=== PATIENT | male | born 1950 | race Caucasian/White ===

== ENCOUNTER → 2016-11-15 | Outpatient (CLI) | payer MEDICARE, OTHER ==
[2016-11-15 13:24] LABS: HEMATOCRIT 44.9 % (37.9-51.0); HEMOGLOBIN 15.2 g/dL (13.5-17.0); HGB HCT DIFFERENCE 0.7; MEAN CORPUSCULAR HEMOGLOBIN 28.9 pg (27.0-33.4); MEAN CORPUSCULAR HGB CONC 33.8 g/dL (32.0-36.0); MEAN CORPUSCULAR VOLUME 86 fl (80-97); RED BLOOD COUNT 5.25 10^6/uL (4.35-5.55); RED CELL DISTRIBUTION WIDTH 14.6 % (11.5-14.0); WHITE BLOOD COUNT 7.5 10^3/uL (4.0-10.5)
[2016-11-15 13:49] LABS: ANION GAP 12 (5-19); BLOOD UREA NITROGEN 41 mg/dL (7-20); CALCIUM 9.8 mg/dL (8.4-10.2); CARBON DIOXIDE 39 mmol/L (22-30); CHLORIDE 88 mmol/L (98-107); CREATININE RESULT 1.46 mg/dL (0.52-1.25); GLUCOSE 238 mg/dL (75-110); MAGNESIUM 1.7 mg/dL (1.6-2.3); POTASSIUM 3.1 mmol/L (3.6-5.0); SODIUM 139.4 mmol/L (137-145)
== END ==
LOC: OD 12:11
PROVIDERS: ATTEND Internal Medicine Nephrology
DX: I12.9 Hypertensive chronic kidney disease with stage 1 through stage 4 chronic kidney disease, or unspecified chronic kidney disease (principal); N18.3 Chronic kidney disease, stage 3 (moderate); I50.9 Heart failure, unspecified; E11.9 Type 2 diabetes mellitus without complications
CPT/HCPCS: 36415; 80048; 83735; 85027

== ENCOUNTER → 2016-11-17 | Outpatient (CLI) | payer MEDICARE, OTHER | LOC: OD 14:55 | PROVIDERS: ATTEND Internal Medicine Nephrology | DX: E87.6 Hypokalemia (principal) | CPT/HCPCS: 36415; 84132 ==

== ENCOUNTER → 2016-12-16 | Outpatient (CLI) | payer MEDICARE, OTHER ==
[2016-12-16 16:41] LABS: ABSOLUTE EOSINOPHILS # (AUTO) 0.2 10^3/uL (0.0-0.6); ABSOLUTE LYMPHOCYTES (AUTO) 2.3 10^3/uL (0.5-4.7); ABSOLUTE MONOCYTES (AUTO) 0.7 10^3/uL (0.1-1.4); ABSOLUTE NEUT (AUTO) 2.9 10^3/uL (1.7-8.2); BASOPHILS % (AUTO) 0.5 % (0-2); EOSINOPHILS % (AUTO) 2.6 % (0-6); HEMATOCRIT 42.5 % (37.9-51.0); HEMOGLOBIN 13.9 g/dL (13.5-17.0); HGB HCT DIFFERENCE -0.8; LYMPHOCYTES % (AUTO) 38.1 % (13-45); MEAN CORPUSCULAR HEMOGLOBIN 28.6 pg (27.0-33.4); MEAN CORPUSCULAR HGB CONC 32.8 g/dL (32.0-36.0); MEAN CORPUSCULAR VOLUME 87 fl (80-97); MONOCYTES % (AUTO) 11.9 % (3-13); RED BLOOD COUNT 4.88 10^6/uL (4.35-5.55); RED CELL DISTRIBUTION WIDTH 15.6 % (11.5-14.0); SEGMENTED NEUTROPHILS % (AUTO) 46.9 % (42-78); WHITE BLOOD COUNT 6.1 10^3/uL (4.0-10.5)
[2016-12-16 17:05] LABS: ALANINE AMINOTRANSFERASE 34 U/L (21-72); ALBUMIN 4.1 g/dL (3.5-5.0); ALKALINE PHOSPHATASE 131 U/L (38-126); ANION GAP 11 (5-19); ASPARTATE AMINO TRANSFERASE 26 U/L (17-59); BILIRUBIN,TOTAL 0.5 mg/dL (0.2-1.3); BLOOD UREA NITROGEN 30 mg/dL (7-20); CALCIUM 9.4 mg/dL (8.4-10.2); CARBON DIOXIDE 35 mmol/L (22-30); CHLORIDE 98 mmol/L (98-107); CREATININE RESULT 1.56 mg/dL (0.52-1.25); GLUCOSE 146 mg/dL (75-110); MAGNESIUM 2.2 mg/dL (1.6-2.3); PHOSPHORUS 4.6 mg/dL (2.5-4.5); POTASSIUM 4.5 mmol/L (3.6-5.0); SODIUM 143.7 mmol/L (137-145); TOTAL PROTEIN 6.8 g/dL (6.3-8.2)
== END ==
LOC: OD 15:01
PROVIDERS: ATTEND Internal Medicine Nephrology
DX: N18.3 Chronic kidney disease, stage 3 (moderate) (principal); E87.6 Hypokalemia; E11.9 Type 2 diabetes mellitus without complications; I50.9 Heart failure, unspecified
CPT/HCPCS: 36415; 80053; 83735; 84100; 85025

== ENCOUNTER → 2017-01-18 | Outpatient (CLI) | payer MEDICARE, OTHER ==
[2017-01-18 12:09] LABS: HEMATOCRIT 46.3 % (37.9-51.0); HEMOGLOBIN 15.1 g/dL (13.5-17.0); MEAN CORPUSCULAR HEMOGLOBIN 27.4 pg (27.0-33.4); MEAN CORPUSCULAR HGB CONC 32.6 g/dL (32.0-36.0); MEAN CORPUSCULAR VOLUME 84 fl (80-97); RED BLOOD COUNT 5.51 10^6/uL (4.35-5.55); RED CELL DISTRIBUTION WIDTH 15.2 % (11.5-14.0); WHITE BLOOD COUNT 9.2 10^3/uL (4.0-10.5)
[2017-01-18 12:11] LABS: APPEARANCE,URINE CLEAR; BILIRUBIN,URINE NEGATIVE (NEGATIVE); GLUCOSE, URINE >=500 mg/dL (NEGATIVE); KETONES,URINE NEGATIVE (NEGATIVE); LEUKOCYTE ESTERASE,URINE NEGATIVE (NEGATIVE); NITRITE,URINE NEGATIVE (NEGATIVE); PROTEIN,URINE NEGATIVE (NEGATIVE); URINE SPECIFIC GRAVITY 1.013; UROBILINOGEN,URINE NEGATIVE mg/dL (<2.0)
[2017-01-18 12:32] LABS: ALANINE AMINOTRANSFERASE 32 U/L (21-72); ALBUMIN 4.3 g/dL (3.5-5.0); ALKALINE PHOSPHATASE 97 U/L (38-126); ANION GAP 12 (5-19); ASPARTATE AMINO TRANSFERASE 26 U/L (17-59); BILIRUBIN,TOTAL 0.9 mg/dL (0.2-1.3); BLOOD UREA NITROGEN 48 mg/dL (7-20); CALCIUM 10.5 mg/dL (8.4-10.2); CREATININE RESULT 1.66 mg/dL (0.52-1.25); GLUCOSE 323 mg/dL (75-110); POTASSIUM 3.7 mmol/L (3.6-5.0); TOTAL PROTEIN 7.5 g/dL (6.3-8.2)
[2017-01-18 12:43] LABS: CHLORIDE 88 mmol/L (98-107); SODIUM 139.9 mmol/L (137-145)
[2017-01-18 13:41] LABS: CARBON DIOXIDE 40 mmol/L (22-30)
== END ==
LOC: OD 10:20
PROVIDERS: ATTEND Internal Medicine Nephrology
DX: I12.9 Hypertensive chronic kidney disease with stage 1 through stage 4 chronic kidney disease, or unspecified chronic kidney disease (principal); N18.3 Chronic kidney disease, stage 3 (moderate); I50.9 Heart failure, unspecified; E11.9 Type 2 diabetes mellitus without complications
CPT/HCPCS: 36415; 80053; 81001; 83735; 85027

== ENCOUNTER → 2017-01-23 | Outpatient (CLI) | payer MEDICARE, OTHER ==
[2017-01-23 13:24] LABS: ANION GAP 17 (5-19); BLOOD UREA NITROGEN 40 mg/dL (7-20); CALCIUM 9.6 mg/dL (8.4-10.2); CARBON DIOXIDE 35 mmol/L (22-30); CHLORIDE 92 mmol/L (98-107); GLUCOSE 192 mg/dL (75-110); POTASSIUM 3.3 mmol/L (3.6-5.0); SODIUM 144.2 mmol/L (137-145)
== END ==
LOC: OD 12:20
PROVIDERS: ATTEND Internal Medicine Nephrology
DX: E87.2 Acidosis (principal)
CPT/HCPCS: 36415; 80048

== ENCOUNTER → 2017-03-06 | Outpatient (CLI) | payer MEDICARE, OTHER ==
[2017-03-06 14:02] LABS: ANION GAP 12 (5-19); BLOOD UREA NITROGEN 36 mg/dL (7-20); CALCIUM 10.1 mg/dL (8.4-10.2); CARBON DIOXIDE 37 mmol/L (22-30); CHLORIDE 93 mmol/L (98-107); CREATININE RESULT 1.65 mg/dL (0.52-1.25); GLUCOSE 273 mg/dL (75-110); MAGNESIUM 1.9 mg/dL (1.6-2.3); POTASSIUM 4.4 mmol/L (3.6-5.0); SODIUM 141.5 mmol/L (137-145)
== END ==
LOC: OD 12:34
PROVIDERS: ATTEND Internal Medicine Nephrology
DX: N18.3 Chronic kidney disease, stage 3 (moderate) (principal); I50.9 Heart failure, unspecified; E87.5 Hyperkalemia; E11.9 Type 2 diabetes mellitus without complications
CPT/HCPCS: 36415; 80048; 83735

== ENCOUNTER 2017-03-31 15:31 | Emergency (ER) | payer MEDICARE, OTHER ==
--- NOTE | 2017-03-31 15:45 | ER Document Report ---
ED Medical Screen (RME) - General Chief Complaint: Shortness Of Breath Stated Complaint: POSSIBLE BLOOD CLOT Time Seen by Provider: 03/31/17 15:34 Mode of Arrival: Ambulatory Information source: Patient TRAVEL OUTSIDE OF THE [place] IN LAST 30 DAYS: No - HPI Patient complains to provider of: Pain, shortness of breath, dyspnea on exertion Onset: Yesterday Onset/Duration: Persistent Quality of pain: Achy Severity: Mild Associated Symptoms: Chest pain, Shortness of breath Exacerbated by: Walking Relieved by: Denies Similar symptoms previously: No Recently seen / treated by doctor: Yes Notes: 03/31/17 15:44 Patient is a 66-year-old male who [facility], complains of shortness of breath and dyspnea on exertion that started yesterday evening, he has a history of atrial fibrillation, congestive heart failure, recent AICD placement, currently takes Eliquis, the clinic sent him over to get a CT scan or other imaging to rule out PE he does report achy left-sided chest pain at times, no cough, cold or congestion 03/31/17 15:45 - Related Data Allergies/Adverse Reactions: No Known Allergies Allergy (Unverified 04/24/16 21:20) Past Medical History - Past Medical History Cardiac Medical History: Reports: Hx Atrial Fibrillation, Hx Coronary Artery Disease, Hx Heart Attack, Hx Hypercholesterolemia, Hx Hypertension Endocrine Medical History: Reports: Hx Diabetes Mellitus Type 2 Psychiatric Medical History: Reports: Hx Depression Past Surgical History: Reports: Hx Cardiac Surgery - Ablation, Hx Tonsillectomy
[2017-03-31 16:06] LABS: ABSOLUTE EOSINOPHILS # (AUTO) 0.1 10^3/uL (0.0-0.6); ABSOLUTE LYMPHOCYTES (AUTO) 2.3 10^3/uL (0.5-4.7); ABSOLUTE MONOCYTES (AUTO) 0.9 10^3/uL (0.1-1.4); ABSOLUTE NEUT (AUTO) 5.6 10^3/uL (1.7-8.2); BASOPHILS % (AUTO) 0.4 % (0-2); EOSINOPHILS % (AUTO) 1.2 % (0-6); HEMATOCRIT 45.3 % (37.9-51.0); HEMOGLOBIN 14.8 g/dL (13.5-17.0); HGB HCT DIFFERENCE -0.9; LYMPHOCYTES % (AUTO) 25.8 % (13-45); MEAN CORPUSCULAR HEMOGLOBIN 26.7 pg (27.0-33.4); MEAN CORPUSCULAR HGB CONC 32.7 g/dL (32.0-36.0); MEAN CORPUSCULAR VOLUME 82 fl (80-97); MONOCYTES % (AUTO) 9.9 % (3-13); RED BLOOD COUNT 5.55 10^6/uL (4.35-5.55); RED CELL DISTRIBUTION WIDTH 16.3 % (11.5-14.0); SEGMENTED NEUTROPHILS % (AUTO) 62.7 % (42-78); WHITE BLOOD COUNT 8.9 10^3/uL (4.0-10.5)
[2017-03-31 16:19] LABS: ALANINE AMINOTRANSFERASE 44 U/L (21-72); ALBUMIN 4.3 g/dL (3.5-5.0); ALKALINE PHOSPHATASE 66 U/L (38-126); ANION GAP 14 (5-19); ASPARTATE AMINO TRANSFERASE 28 U/L (17-59); BILIRUBIN,DIRECT 0.4 mg/dL (0.0-0.4); BILIRUBIN,TOTAL 0.8 mg/dL (0.2-1.3); BLOOD UREA NITROGEN 40 mg/dL (7-20); CALCIUM 10.3 mg/dL (8.4-10.2); CARBON DIOXIDE 37 mmol/L (22-30); CHLORIDE 93 mmol/L (98-107); CREATINE KINASE 99 U/L (55-170); CREATININE RESULT 1.66 mg/dL (0.52-1.25); GLUCOSE 125 mg/dL (75-110); PARTIAL THROMBOPLASTIN TIME 27.8 SEC (23.5-35.8); POTASSIUM 4.5 mmol/L (3.6-5.0); SODIUM 144.4 mmol/L (137-145); TOTAL PROTEIN 7.4 g/dL (6.3-8.2)
[2017-03-31 16:32] LABS: CREATINE KINASE MB 2.6 ng/mL (<4.55)
--- NOTE | 2017-03-31 16:33 | RADIOLOGY REPORT (SQ) ---
EXAM DESCRIPTION: CTA CHEST COMPLETED DATE/TIME: 03/31/2017 4:10 pm REASON FOR STUDY: SOB COMPARISON: None. TECHNIQUE: CT scan of the chest performed using helical scanning technique with dynamic intravenous contrast injection. Images reviewed with lung, soft tissue and bone windows. Reconstructed coronal and sagittal MPR images reviewed. Additional 3 dimensional post-processing performed to develop Maximal Intensity Projection images ([place] P). All images stored on PACS. All CT scanners at this facility use dose modulation, iterative reconstruction, and/or weight based d osing when appropriate to reduce radiation dose to as low as reasonably achievable (ALARA). [facility]: Dose Right [facility]: CareDose [facility]: Dose Right [facility]: Teradose 4D [facility]: Flashtalking CONTRAST TYPE AND DOSE: 86 mL Isovue 300- low osmolar. RENAL FUNCTION: Creatinine 1.65 BUN 36 RADIATION DOSE: 77.47 mGy. LIMITATIONS: None. FINDINGS: LUNGS AND PLEURA: No masses, infiltrates, pneumothorax. No pleural effusions, calcificati ons. AORTA AND GREAT VESSELS: No aneurysm or dissection. HEART: No pericardial effusion. PULMONARY ARTERIES: No emboli visualized in the main pulmonary arteries or the segmental branches. HILAR AND MEDIASTINAL STRUCTURES: No identified masses or abnormal nodes. HARDWARE: Pacemaker on the left. UPPER ABDOMEN: No significant findings. Limited exam. THYROID AND OTHER SOFT TISSUES: No masses. No adenopathy. BONES: There is a fracture of the sternum about 3 cm above the sternoxiphoid joint. There does appea r to be some degree of healing suggesting this is subacute. Bridging osteophytes are seen in mid to lower thoracic spine. 3D MIPS: Confirm above findings. OTHER: No other significant finding. IMPRESSION: 1. There is no evidence of pulmonary embolus. 2. There is a fracture of the sternum with a mild degree of healing suggesting this is a relatively recent fracture. 3. There is a lower thoracic spondylosis. TECHNICAL DOCUMENTATION: JOB ID: [id number] Quality ID # [id number]: Final reports with documentation of one or more dose reduction techniques (e.g., Au tomated exposure control, adjustment of the mA and/or kV according to patient size, use of iterative reconstruction technique) 2010 [email or web address]- All Rights Reserved
[2017-03-31 16:36] LABS: TROPONIN I 0.038 ng/mL
[2017-03-31] MEDS ORDERED: IPRATROPIUM/ALBUTEROL 0.5-2.5 MG/3 ML AMPUL NEB ONE (16:53)
--- NOTE | 2017-03-31 16:55 | ER Document Report ---
ED General - General Chief Complaint: Shortness Of Breath Stated Complaint: POSSIBLE BLOOD CLOT Time Seen by Provider: 03/31/17 15:34 Mode of Arrival: Ambulatory Information source: Patient Notes: 66-year-old male with recent knee surgery presents with complaints of shortness of breath cough. Patient notes he has had substernal pain approximately for 4 months. Notes he had chest compressions performed 4 months ago after he went into cardiac arrest. Patient denies any fevers or chills nausea vomiting or diarrhea TRAVEL OUTSIDE OF THE [place] IN LAST 30 DAYS: No - HPI Onset: Other Onset/Duration: Persistent Quality of pain: Achy, Sharp Severity: Mild Pain Level: 1 Associated symptoms: Body/muscle aches, Nonproductive cough Exacerbated by: Coughing Relieved by: Denies Similar symptoms previously: Yes Recently seen / treated by doctor: Yes - Related Data Allergies/Adverse Reactions: No Known Allergies Allergy (Unverified 04/24/16 21:20) Past Medical History - General Information source: Patient - Social History Smoking Status: Never Smoker Cigarette use (# per day): No Chew tobacco use (# tins/day): No Smoking Education Provided: No Family History: Reviewed & Not Pertinent - Past Medical History Cardiac Medical History: Reports: Hx Atrial Fibrillation, Hx Coronary Artery Disease, Hx Heart Attack, Hx Hypercholesterolemia, Hx Hypertension Endocrine Medical History: Reports: Hx Diabetes Mellitus Type 2 Psychiatric Medical History: Reports: Hx Depression Past Surgical History: Reports: Hx Cardiac Surgery - Ablation, Hx Tonsillectomy Review of Systems - Review of Systems Notes: PHYSICAL EXAMINATION: GENERAL: Well-appearing, well-nourished and in no acute distress. HEAD: Atraumatic, normocephalic. EYES: Pupils equal round and reactive to light, extraocular movements intact, sclera anicteric, conjunctiva are normal. ENT: Nares patent, oropharynx clear without exudates. Moist mucous membranes. NECK: Normal range of motion, supple without lymphadenopathy LUNGS: Sternal tenderness clear breath sounds bilateral HEART: Regular rate and rhythm without murmurs ABDOMEN: Soft, nontender, nondistended abdomen. No guarding, no rebound. No masses appreciated. Musculoskeletal: Normal range of motion, no pitting or edema. No cyanosis. NEUROLOGICAL: Cranial nerves grossly intact. Normal speech, normal gait. Normal sensory, motor exams PSYCH: Normal mood, normal affect. SKIN: Warm, Dry, normal turgor, no rashes or lesions noted. Course - Re-evaluation Re-evalutation: 03/31/17 16:54 CTA of the chest is consistent with a sternal fracture which would make sense with the patient's sternal pain. Patient's pain is consistent with 4 month duration 03/31/17 17:11 Patient was given DuoNeb's otherwise stable I will discharge to follow-up with primary care physician vital signs are stable After performing a Medical Screening Examination, I estimate there is LOW risk for RUPTURED ESOPHAGUS, PNEUMOTHORAX, PULMONARY EMBOLISM, ACUTE CORONARY SYNDROME, OR THORACIC AORTIC DISSECTION, thus I consider the discharge disposition reasonable. I have reevaluated this patient multiple times and no significant life threatening changes are noted. The patient and I have discussed the diagnosis and risks, and we agree with discharging home with close follow-up. We also discussed returning to the Emergency Department immediately if new or worsening symptoms occur. We have discussed the symptoms which are most concerning (e.g., bloody sputum, worsening pain or shortness of breath) that necessitate immediate return. 03/31/17 17:11 - Laboratory Result Diagrams: 03/31/17 15:49 03/31/17 15:49 Laboratory results interpreted by me: 03/31/17 03/31/17 03/31/17 15:49 15:49 15:49 MCH 26.7 L RDW 16.3 H Chloride 93 L Carbon Dioxide 37 H BUN 40 H Creatinine 1.66 H Est GFR ( Amer) 50 L Est GFR (Non-Af Amer) 42 L Glucose 125 H Calcium 10.3 H NT-Pro-B Natriuret Pep 3300 H - Diagnostic Test Radiology reviewed: Image reviewed, Reports reviewed - Sternal fracture Discharge - Discharge Clinical Impression: Chest wall pain Sternal fracture Qualifiers: Encounter type: initial encounter Sternal location: body of sternum Fracture type: closed Qualified Code(s): S22.22XA - Fracture of body of sternum, initial encounter for closed fracture Condition: Stable Disposition: HOME, SELF-CARE Instructions: Chest Wall Pain ([facility]) Additional Instructions: Follow up with your physician tomorrow for further care or return to the ED IMMEDIATELY if symptoms worsen or new concerns occur. If you cannot afford to follow up with your primary care physician a list of low cost clinics have been provided at the end of your discharge papers as well.
[2017-03-31] MEDS ORDERED: ALBUTEROL SULFATE HFA (90 MCG/PUFF) 8 GM MDI (1 MDI/ER DISP) IH ONE (17:12)
[2017-03-31 17:15] VITALS: BP 117/79
--- NOTE | 2017-03-31 20:29 | EKG REPORT ---
SEVERITY:- ABNORMAL ECG - AFIB/FLUTTER AND VENTRICULAR-PACED RHYTHM : Confirmed by: Jaden Pemberton MD 31-Mar-2017 20:28:25
== END 2017-03-31 17:20 | disposition home or self-care (01) ==
LOC: ER 15:31
DX: S22.22XA Fracture of body of sternum, initial encounter for closed fracture (principal); R07.89 Other chest pain; R06.02 Shortness of breath; R05 Cough; X58.XXXA Exposure to other specified factors, initial encounter
CPT/HCPCS: 93005; 94640; 99285; 36415; 82553; 82550; 85025; 85610; 85730; 80053; 84484; 83880; 71275; 93010; A9270; J7620

== ENCOUNTER 2017-04-13 06:29 | Day surgery (SDC) | payer MEDICARE, OTHER ==
[~2017-04-13 06:29] MED LIST: KETOROLAC TROMETHAMINE 0.45% 4 DROP/0.4 ML DROPERETTE OD PRN; TETRACAINE HCL 0.5% OPH SOLN 2 ML ONE
[2017-04-13] MEDS: TETRACAINE HCL 0.5% OPH SOLN 0.6 ML DROPERETTE OD PRN ×2 (07:00→07:22)
[2017-04-13] MEDS: CYCLOPENTOLATE 0.2%/PHENYLEPHRINE 1% OPH SOLN 2 ML OD PRN ×3 (07:01→07:21)
[2017-04-13] MEDS: TROPICAMIDE 1% OPH SOLN 3 ML OD PRN ×3 (07:02→07:21)
[2017-04-13] MEDS: BESIFLOXACIN HCL 0.6% OPH SUSP 5 ML BOTTLE OD PRN ×4 (07:02→08:07)
[2017-04-13] MEDS ORDERED: EPINEPHRINE INJ/PF 1 MG/1 ML AMPULE ONE (07:08)
[2017-04-13] MEDS ORDERED: LIDOCAINE 1% INJ-PF (10 MG/ML) 30 ML SDV ONE (07:09)
[2017-04-13] MEDS ORDERED: CHONDR SU A NA/HYALUR INTRAOC KIT (SURGICARE) ONE (07:09)
[2017-04-13] MEDS ORDERED: MIDAZOLAM 2 MG/2 ML INJ ONE (07:25)
[2017-04-13] MEDS ORDERED: FENTANYL CITRATE INJ/PF 100 MCG/2 ML AMPUL ONE (07:46)
--- NOTE | 2017-04-17 11:59 | [facility] DISCHARGE SUMMARY E ---
[facility] Discharge Summary NAME: MCKAYLA COYNE AGE: 66Y ADMITTED: 04/13/2017 DISCHARGED: 04/13/2017 HISTORY: This is a 66-year-old male who underwent cataract extraction of the right eye. DIAGNOSIS: Cataract, right eye. He underwent surgery because he was having difficulty reading small print like medicine bottles. He should be on a regular diet. No bending at his waist. No heavy lifting. He should use his Besivance, Ilevro, and Durezol at 3 p.m. and 8 p.m. and sleep with a rigid shield and I will see him for his one day postoperative tomorrow. DICTATING PHYSICIAN: OH HUTCHINSON M.D. [id number] PHY#: [id number] ID: [id number] JOB#: [id number] ACCT: [id number] cc:OH HUTCHINSON M.D. >
--- NOTE | 2017-04-17 11:59 | [facility] OPERATIVE REPORT E ---
[facility] Operative Report NAME: MCKAYLA COYNE AGE: 66Y DATE OF SURGERY: 04/13/2017 ROOM: PREOPERATIVE DIAGNOSIS: CATARACT, RIGHT EYE. POSTOPERATIVE DIAGNOSIS: CATARACT, RIGHT EYE. OPERATION: Cataract extraction with intraocular lens implant of the right eye. SURGEON: OH HUTCHINSON M.D. ANESTHESIA: Topical. PROCEDURE: After obtaining appropriate consent, the patient's right eye was prepped and draped in sterile fashion as well as the surgeon in a sterile manner and cataract surgery was started. First a paracentesis blade was used to make a small side-port incision. Viscoelastic was used to inflate the anterior chamber. Next a 2.4 mm incision was made with the paracentesis blade. A continuous capsulorrhexis incision was made using a cystotome and Utrata forceps. Following this hydrodissection was carried out to make the lens fully loose and mobile and it was rotated 90 degrees. Following this, a getogh-qmb-vssuqfn technique was used to phacoemulsify the lens with a CDE of 5.26. The remaining cortex was removed with irrigation/aspiration. Provisc was instilled into the capsular bag to inflate the bag. A SN60WF, 19.5 SN60WF diopter lens was placed. The remaining viscoelastic material was removed with irrigation/aspiration. Following this, a 10-0 nylon suture was used to close the incision and it was found to be watertight. Vigamox was instilled in the eye and a protective shield was placed over the eye. The patient returned to the postoperative recovery in stable condition. DICTATING PHYSICIAN: OH HUTCHINSON M.D. [id number] PHY#: [id number] ID: [id number] JOB#: [id number] ACCT: [id number] cc:OH HUTCHINSON M.D. >
== END 2017-04-13 08:50 | disposition home or self-care (01) ==
LOC: SC 06:29
PROVIDERS: ATTEND Internal Medicine
PROC: 08RJ3JZ Replacement of Right Lens with Synthetic Substitute, Percutaneous Approach (ICD-10-PCS; principal; 2017-04-13 07:30)
DX: H25.813 Combined forms of age-related cataract, bilateral (principal); H43.813 Vitreous degeneration, bilateral; I10 Essential (primary) hypertension; E11.9 Type 2 diabetes mellitus without complications; E78.00 Pure hypercholesterolemia, unspecified; E03.9 Hypothyroidism, unspecified; M10.9 Gout, unspecified; Z79.4 Long term (current) use of insulin; Z87.891 Personal history of nicotine dependence; Z79.01 Long term (current) use of anticoagulants; Z95.810 Presence of automatic (implantable) cardiac defibrillator
CPT/HCPCS: 66984; 82962; V2632; J2250; J3490 ×2; A9270; J0171; J3010; 142

== ENCOUNTER → 2017-04-18 | Outpatient (CLI) | payer MEDICARE, OTHER ==
[2017-04-18 15:00] LABS: HEMATOCRIT 47.3 % (37.9-51.0); HEMOGLOBIN 15.3 g/dL (13.5-17.0); HGB HCT DIFFERENCE -1.4; MEAN CORPUSCULAR HEMOGLOBIN 26.6 pg (27.0-33.4); MEAN CORPUSCULAR HGB CONC 32.3 g/dL (32.0-36.0); MEAN CORPUSCULAR VOLUME 82 fl (80-97); RED BLOOD COUNT 5.74 10^6/uL (4.35-5.55); RED CELL DISTRIBUTION WIDTH 17.3 % (11.5-14.0); WHITE BLOOD COUNT 7.2 10^3/uL (4.0-10.5)
[2017-04-18 15:11] LABS: APPEARANCE,URINE CLEAR; BILIRUBIN,URINE NEGATIVE (NEGATIVE); GLUCOSE, URINE NEGATIVE (NEGATIVE); KETONES,URINE NEGATIVE (NEGATIVE); LEUKOCYTE ESTERASE,URINE NEGATIVE (NEGATIVE); NITRITE,URINE NEGATIVE (NEGATIVE); PROTEIN,URINE NEGATIVE (NEGATIVE); URINE SPECIFIC GRAVITY 1.008; UROBILINOGEN,URINE NEGATIVE mg/dL (<2.0)
[2017-04-18 15:20] LABS: BLOOD UREA NITROGEN 45 mg/dL (7-20); CALCIUM 9.8 mg/dL (8.4-10.2); CHLORIDE 93 mmol/L (98-107); CREATININE RESULT 1.99 mg/dL (0.52-1.25); GLUCOSE 155 mg/dL (75-110); SODIUM 143.9 mmol/L (137-145)
[2017-04-18 15:29] LABS: ANION GAP 10 (5-19)
[2017-04-18 15:34] LABS: CARBON DIOXIDE 41 mmol/L (22-30)
[2017-04-20 10:38] LABS: CREATININE URINE 47.6 mg/dL (Not Estab.); MICROALBUMIN URINE 13.6 ug/mL (Not Estab.)
== END ==
LOC: OD 14:07
PROVIDERS: ATTEND Internal Medicine Nephrology
DX: E11.22 Type 2 diabetes mellitus with diabetic chronic kidney disease (principal); N18.4 Chronic kidney disease, stage 4 (severe); I50.9 Heart failure, unspecified; E87.6 Hypokalemia
CPT/HCPCS: 36415; 80048; 81001; 82043; 82570; 83735; 85027

== ENCOUNTER 2017-05-11 08:47 | Day surgery (SDC) | payer MEDICARE, OTHER ==
[~2017-05-11 08:47] MED LIST changes: -KETOROLAC TROMETHAMINE 0.45% 4 DROP/0.4 ML DROPERETTE OD PRN; +KETOROLAC TROMETHAMINE 0.45% 4 DROP/0.4 ML DROPERETTE OS PRN; +TETRACAINE HCL 0.5% OPH SOLN 0.6 ML DROPERETTE OS PRN; -TETRACAINE HCL 0.5% OPH SOLN 2 ML ONE; +TETRACAINE HCL 0.5% OPH SOLN 2 ML OS PRN
[2017-05-11] MEDS: CYCLOPENTOLATE 0.2%/PHENYLEPHRINE 1% OPH SOLN 2 ML OS PRN ×2 (09:00→09:22)
[2017-05-11] MEDS: TROPICAMIDE 1% OPH SOLN 3 ML OS PRN ×2 (09:00→09:22)
[2017-05-11] MEDS: BESIFLOXACIN HCL 0.6% OPH SUSP 5 ML BOTTLE OS PRN ×2 (09:01→09:23)
[2017-05-11] MEDS ORDERED: MIDAZOLAM 2 MG/2 ML INJ ONE (09:04)
[2017-05-11] MEDS ORDERED: FENTANYL CITRATE INJ/PF 100 MCG/2 ML AMPUL ONE (09:04)
[2017-05-11] MEDS ORDERED: EPINEPHRINE INJ/PF 1 MG/1 ML AMPULE ONE (09:17)
[2017-05-11] MEDS ORDERED: LIDOCAINE 1% INJ-PF (10 MG/ML) 30 ML SDV ONE (09:17)
[2017-05-11] MEDS ORDERED: CHONDR SU A NA/HYALUR INTRAOC KIT (SURGICARE) ONE (09:17)
== END 2017-05-11 09:38 | disposition home or self-care (01) ==
LOC: SC 08:47
PROVIDERS: ATTEND Internal Medicine
DX: R73.9 Hyperglycemia, unspecified (principal)
CPT/HCPCS: 82962; A9270; J0171; J2250; J3010; J3490

== ENCOUNTER 2018-03-13 17:13 | Inpatient (IN) | payer MEDICARE, OTHER ==
[2018-03-13] MEDS ORDERED: ASPIRIN 81 MG TABLET, CHEWABLE PO ONE (17:25)
[2018-03-13] MEDS ORDERED: FUROSEMIDE INJ/PF 40 MG/4 ML SDV IV ONE (17:26)
--- NOTE | 2018-03-13 17:26 | ER Document Report ---
ED Medical Screen (RME) - General Chief Complaint: Skin Sore(s) Stated Complaint: SHORTNESS OF BREATH, LEG SORES Time Seen by Provider: 03/13/18 17:25 TRAVEL OUTSIDE OF THE [place]. IN LAST 30 DAYS: No - HPI Notes: 03/13/18 17:26 History of CHF coming in for shortness of breath ongoing for the last few weeks along with weight gain states his doctor Dr. Branden logan for IV Lasix. Patient normally does not wear oxygen is currently on 2 L - Related Data Allergies/Adverse Reactions: No Known Allergies Allergy (Verified 04/06/17 13:02) Past Medical History - Past Medical History Cardiac Medical History: Reports: Hx Atrial Fibrillation, Hx Coronary Artery Disease, Hx Heart Attack - november 2016 , Hx Hypercholesterolemia, Hx Hypertension - MEDICATED Pulmonary Medical History: Denies: Hx Asthma Neurological Medical History: Denies: Hx Cerebrovascular Accident, Hx Seizures Endocrine Medical History: Reports: Hx Diabetes Mellitus Type 2 GI Medical History: Denies: Hx Hepatitis, Hx Hiatal Hernia, Hx Ulcer Psychiatric Medical History: Reports: Hx Depression Infectious Medical History: Denies: Hx Hepatitis Past Surgical History: Reports: Hx Cardiac Surgery - Ablation, Hx Pacemaker - November heart stopped CPR started , Hx Tonsillectomy. Denies: Hx Open Heart Surgery Review of Systems - Review of Systems Respiratory: Cough, Short of breath -: Yes All other systems reviewed and negative Physical Exam - Vital signs Vitals: Temp Pulse Resp BP Pulse Ox 98.6 F 96 23 H 107/82 89 L 03/13/18 17:17 03/13/18 17:17 03/13/18 17:17 03/13/18 17:17 03/13/18 17:17 - Respiratory Respiratory status: Tachypnea Chest status: Nontender Breath sounds: Rales Course - Vital Signs Vital signs: Temp Pulse Resp BP Pulse Ox 98.6 F 96 23 H 107/82 89 L 03/13/18 17:17 03/13/18 17:17 03/13/18 17:17 03/13/18 17:17 03/13/18 17:17 Doctor's Discharge - Discharge Referrals: SAVANNAH BLANKENSHIP MD [Primary Care Provider] - Follow up as needed
[2018-03-13 18:06] LABS: VENOUS BLOOD BASE EXCESS 10.3 mmol/L; VENOUS BLOOD HCO3 37.9 mmol/L (20-32); VENOUS BLOOD PCO2 61.7 mmHg (35-63); VENOUS BLOOD PH 7.41 (7.30-7.42)
[2018-03-13 18:08] LABS: ABSOLUTE BASOPHILS # (AUTO) 0.1 10^3/uL (0.0-0.2); ABSOLUTE EOSINOPHILS # (AUTO) 0.2 10^3/uL (0.0-0.6); ABSOLUTE LYMPHOCYTES (AUTO) 2.7 10^3/uL (0.5-4.7); ABSOLUTE MONOCYTES (AUTO) 0.9 10^3/uL (0.1-1.4); ABSOLUTE NEUT (AUTO) 4.1 10^3/uL (1.7-8.2); BASOPHILS % (AUTO) 0.7 % (0-2); EOSINOPHILS % (AUTO) 2.5 % (0-6); HEMATOCRIT 45.6 % (37.9-51.0); HEMOGLOBIN 15.1 g/dL (13.5-17.0); MEAN CORPUSCULAR HEMOGLOBIN 28.6 pg (27.0-33.4); MEAN CORPUSCULAR VOLUME 87 fl (80-97); MONOCYTES % (AUTO) 11.3 % (3-13); PLATELET COUNT 240 10^3/uL (150-450); RED BLOOD COUNT 5.27 10^6/uL (4.35-5.55); RED CELL DISTRIBUTION WIDTH 16.3 % (11.5-14.0); SEGMENTED NEUTROPHILS % (AUTO) 51.5 % (42-78); TOTAL CELLS COUNTED % (AUTO) 100 %; WHITE BLOOD COUNT 7.9 10^3/uL (4.0-10.5)
[2018-03-13] MEDS ORDERED: IPRATROPIUM/ALBUTEROL 0.5-2.5 MG/3 ML AMPUL NEB ONE ×3 (18:10→19:40)
--- NOTE | 2018-03-13 18:15 | RADIOLOGY REPORT (SQ) ---
EXAM DESCRIPTION: CHEST SINGLE VIEW COMPLETED DATE/TIME: 03/13/2018 6:06 pm REASON FOR STUDY: chf sob COMPARISON: 10/29/2016 EXAM PARAMETERS: NUMBER OF VIEWS: One view. TECHNIQUE: Single frontal radiographic view of the chest acquired. RADIATION DOSE: NA LIMITATIONS: None. FINDINGS: LUNGS AND PLEURA: No opacities, masses or pneumothorax. No pleural effusion. MEDIASTINUM AND HILAR STRUCTURES: No masses. Contour normal. HEART AND VASCULAR STRUCTURES: Heart stable in size. Normal vasculature. BONES: No acute findings. HARDWARE: Cardiac pacer. OTHER: No other significant finding. IMPRESSION: NO ACUTE RADIOGRAPHIC FINDING IN THE CHEST. TECHNICAL DOCUMENTATION: JOB ID: [id number] [employer]- All Rights Reserved Reading location - IP/workstation name: [email or web address]
--- NOTE | 2018-03-13 18:38 | ER Document Report ---
ED General <BETTY WOODSON - Last Filed: 03/13/18 21:26> - General Mode of Arrival: Ambulatory Information source: Patient TRAVEL OUTSIDE OF THE [place] IN LAST 30 DAYS: No <NELSY JULIEN - Last Filed: 03/13/18 22:45> - General Chief Complaint: Skin Sore(s) Stated Complaint: SHORTNESS OF BREATH, LEG SORES Time Seen by Provider: 03/13/18 17:25 Notes: This 67-year-old male patient with history COPD and congestive heart failure and peripheral edema comes emergency room complaining of progressively worsening shortness of breath for the past 2-3 weeks. He reports a week ago his weight went up by 5 pounds. He has not been to see his primary care provider for this problem. His reports that the chronic wounds in the left lower extremity have been weeping for the past year but are worse. The peripheral edema and redness in the left lower extremity seems to be worse than it has been. Patient does use inhalers for COPD at home, he is not on oxygen at home. At triage his O2 saturation was 89% and he was dyspneic. (BETTY WOODSON) 67 y.o male with a PMHx of DM, depression, gout, A.fib, defibrillator placement , CHF, HTN, dyslipidemia, renal failure and knee surgery presents to the ED with skin sores to his bilateral lower extremities that have been worsening for the past 2-3 weeks with the onset of erythema. Pt's reports that the chronic wounds to his bilateral lower extremities have been draining for the past year, more prominently in his LLE and than his RLE is beginning to drain more. Pt denies any urinary sx including any urinary retention. Pt states that his former urologist was Dr. Gee but reports that he has not seen him in a while and is making plans to see a different urologist. 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 (NELSY JULIEN) - Related Data Allergies/Adverse Reactions: No Known Allergies Allergy (Verified 04/06/17 13:02) Past Medical History Past Surgical History: Reports: Hx Pacemaker - November heart stopped CPR started. Pacemaker-defibrillator. <BETTY WOODSON - Last Filed: 03/13/18 21:26> - General Information source: Patient - Social History Smoking Status: Former Smoker Chew tobacco use (# tins/day): No Frequency of alcohol use: None Drug Abuse: None Family History: Reviewed & Not Pertinent Patient has suicidal ideation: No Patient has homicidal ideation: No - Past Medical History Cardiac Medical History: Reports: Hx Atrial Fibrillation, Hx Congestive Heart Failure, Hx Coronary Artery Disease, Hx Heart Attack - november 2016 , Hx Hypercholesterolemia, Hx Hypertension - MEDICATED Pulmonary Medical History: Denies: Hx Asthma Neurological Medical History: Denies: Hx Cerebrovascular Accident, Hx Seizures Endocrine Medical History: Reports: Hx Diabetes Mellitus Type 2 Renal/ Medical History: Denies: Hx Peritoneal Dialysis GI Medical History: Denies: Hx Hepatitis, Hx Hiatal Hernia, Hx Ulcer Psychiatric Medical History: Reports: Hx Depression Infectious Medical History: Denies: Hx Hepatitis Past Surgical History: Reports: Hx Cardiac Surgery - Ablation, Hx Pacemaker - November heart stopped CPR started , Hx Tonsillectomy. Denies: Hx Open Heart Surgery <NELSY JULIEN - Last Filed: 03/13/18 22:45> Review of Systems - Review of Systems Constitutional: No symptoms reported EENT: No symptoms reported Cardiovascular: No symptoms reported Respiratory: See HPI, Short of breath Gastrointestinal: No symptoms reported Genitourinary: See HPI. denies: Retention Male Genitourinary: No symptoms reported Musculoskeletal: No symptoms reported Skin: See HPI, Change in color - Erythema to bilat lower extremities, Other - Bilateral lower extremity edema with draining wounds Hematologic/Lymphatic: No symptoms reported Neurological/Psychological: No symptoms reported -: Yes All other systems reviewed and negative <NELSY JULIEN - Last Filed: 03/13/18 22:45> Physical Exam <BETTY WOODSON - Last Filed: 03/13/18 21:26> <NELSY JULIEN - Last Filed: 03/13/18 22:45> - Vital signs Vitals: Temp Pulse Resp BP Pulse Ox 98.6 F 96 23 H 107/82 89 L 03/13/18 17:17 03/13/18 17:17 03/13/18 17:17 03/13/18 17:17 03/13/18 17:17 - Notes Notes: Physical Exam: General: Alert, morbidly obese. HEENT: Normocephalic. Atraumatic. PERRL. Extraocular movements intact. Oropharynx clear. Neck: Supple. Non-tender. Respiratory: Tachypnic, 89% O2 saturation on room air. Clear and equal breath sounds bilaterally. Cardiovascular: Regular rate and rhythm. Abdominal: Morbidly obese. Non-tender, soft. Normal Bowel Sounds. Back: Non-tender. No deformity or step off. Extremities: Moves all four extremities. 3-4+ pitting edema bilaterally with chronic draining wounds more prominently in his LLE than his RLE. Upper extremities: Normal inspection. Normal ROM. Lower extremities: Normal inspection. No edema. Normal ROM. Neurological: Normal cognition. AAOx4. Normal speech. (NELSY JULIEN) Course - Laboratory Result Diagrams: 03/13/18 17:50 03/13/18 17:50 - Diagnostic Test Radiology reviewed: Image reviewed, Reports reviewed - Chest x-ray does not show any acute process - EKG Interpretation by Me EKG shows normal: [place], Intervals, QRS Complexes, ST-T Waves Rate: Tachycardia - 105 Rhythm: A.Fib [place]/QRS: RBBB - Consults Dr. Braden Time consulted: 21:20 Consulted provider: will come to ER - Telemetry admission <BETTY WOODSON - Last Filed: 03/13/18 21:26> - Laboratory Result Diagrams: 03/13/18 17:50 03/13/18 17:50 <NELSY JULIEN - Last Filed: 03/13/18 22:45> - Re-evaluation Re-evalutation: 03/13/18 20:36 At this point patient has had about 700 mL's of urine output, his lungs do sound better. Not sure if this is due to the breathing treatments or the diuresis or both. (BETTY WOODSON) - Vital Signs Vital signs: Temp Pulse Resp BP Pulse Ox 98.6 F 96 17 103/60 87 L 03/13/18 17:17 03/13/18 17:17 03/13/18 22:31 03/13/18 22:31 03/13/18 22:14 - Laboratory Laboratory results interpreted by me: 03/13/18 03/13/18 03/13/18 17:50 17:50 17:50 RDW 16.3 H VBG HCO3 Chloride 85 L Carbon Dioxide 37 H BUN 57 H Creatinine 2.10 H Est GFR ( Amer) 38 L Est GFR (Non-Af Amer) 32 L Glucose 339 H Hemoglobin A1c % Calcium 10.3 H Direct Bilirubin 0.5 H NT-Pro-B Natriuret Pep 1220 H 03/13/18 03/13/18 17:50 17:50 RDW VBG HCO3 37.9 H Chloride Carbon Dioxide BUN Creatinine Est GFR ( Amer) Est GFR (Non-Af Amer) Glucose Hemoglobin A1c % 10.9 H Calcium Direct Bilirubin NT-Pro-B Natriuret Pep Critical Care Note - Critical Care Note Total time excluding time spent on procedures (mins): 35 <BETTY WOODSON - Last Filed: 03/13/18 21:26> Discharge - Discharge Admitting Provider: Hospitalist Unit Admitted: Telemetry <BETTY WOODSON - Last Filed: 03/13/18 21:26> <NELSY JULIEN - Last Filed: 03/13/18 22:45> - Discharge Clinical Impression: COPD with acute exacerbation, Peripheral edema, Chronic atrial fibrillation, Hypoxemia, Renal insufficiency Dyspnea Qualifiers: Dyspnea type: unspecified Qualified Code(s): R06.00 - Dyspnea, unspecified Congestive heart failure Qualifiers: Heart failure type: unspecified Heart failure chronicity: chronic Qualified Code(s): I50.9 - Heart failure, unspecified Condition: Stable Disposition: ADMITTED INPATIENT Scribe Attestation: 03/13/18 20:38 I personally performed the services described in the documentation, reviewed and edited the documentation which was dictated to the scribe in my presence, and it accurately records my words and actions. (BETTY WOODSON) Scribe Documentation - Scribe Written by Buffy:: Buffy Orozco 03/13/18 [id number] acting as scribe for :: Valeriy <NELSY JULIEN - Last Filed: 03/13/18 22:45>
[2018-03-13 18:40] LABS: CREATINE KINASE MB 2.04 ng/mL (<4.55); TROPONIN I 0.016 ng/mL
[2018-03-13 19:12] LABS: ALANINE AMINOTRANSFERASE 29 U/L (21-72); ALBUMIN 4.3 g/dL (3.5-5.0); ALKALINE PHOSPHATASE 68 U/L (38-126); ANION GAP 15 (5-19); ASPARTATE AMINO TRANSFERASE 54 U/L (17-59); BILIRUBIN,DIRECT 0.5 mg/dL (0.0-0.4); BILIRUBIN,TOTAL 0.7 mg/dL (0.2-1.3); BLOOD UREA NITROGEN 57 mg/dL (7-20); CALCIUM 10.3 mg/dL (8.4-10.2); CARBON DIOXIDE 37 mmol/L (22-30); CHLORIDE 85 mmol/L (98-107); CREATINE KINASE 92 U/L (55-170); GLUCOSE 339 mg/dL (75-110); POTASSIUM 4.5 mmol/L (3.6-5.0); TOTAL PROTEIN 7.9 g/dL (6.3-8.2)
--- NOTE | 2018-03-13 19:27 | EKG REPORT ---
SEVERITY:- ABNORMAL ECG - ATRIAL FIBRILLATION RIGHT BUNDLE BRANCH BLOCK PROBABLE ANTEROSEPTAL INFARCT, AGE INDETERM : Confirmed by: Jaden Pemberton MD 13-Mar-2018 19:26:40
[2018-03-13] MEDS ORDERED: METHYLPREDNISOLONE INJ 125 MG/2 ML SDV IV ONE (20:35)
[2018-03-13] MEDS ORDERED: INSULIN LISPRO 100 UNIT/ML 3 ML VIAL SUBCUT PRN (21:29)
[2018-03-13] MEDS ORDERED: MAG HYDROX/AL HYDROX/SIMETH SUSP 30 ML UDCUP PO PRN (21:29)
[2018-03-13] MEDS ORDERED: ENALAPRILAT DIHYDRATE INJ/PF 1.25 MG/1 ML SDV IV PRN (21:29)
[2018-03-13] MEDS ORDERED: DEXTROSE 40% GEL 15 GM TUBE PO PRN ×2 (21:29)
[2018-03-13] MEDS ORDERED: DEXTROSE 50%-WATER 25 GM/50 ML DISP.SYRIN IV PRN ×2 (21:29)
[2018-03-13] MEDS ORDERED: ACETAMINOPHEN 325 MG TABLET PO PRN (21:29)
[2018-03-13] MEDS ORDERED: GLUCAGON,HUMAN RECOMB 1 MG INJ IM PRN (21:29)
[2018-03-13] MEDS ORDERED: BESIFLOXACIN HCL 0.6% OPH SUSP 5 ML BOTTLE OP SCH (21:30)
[2018-03-13] MEDS ORDERED: DILTIAZEM HCL INJ 25 MG/5 ML VIAL IV ONE ×2 (21:43→21:51)
[2018-03-13] MEDS ORDERED: (PENDING PHARMACY ID) (Bupropion Hcl [Wellbutrin Sr 150 Mg Tablet] 1 TAB) PO SCH (22:00)
[2018-03-13 22:19] LABS: CREATINE KINASE MB 1.76 ng/mL (<4.55); TROPONIN I 0.017 ng/mL
[2018-03-13] MEDS: ATORVASTATIN CALCIUM 80 MG TABLET PO SCH (22:22)
[2018-03-13] MEDS: FUROSEMIDE INJ/PF 40 MG/4 ML SDV IV SCH (22:22)
[2018-03-13] MEDS: BUPROPION HCL 100 MG TABLET PO SCH (22:27)
[2018-03-13] MEDS ORDERED: METOPROLOL TARTRATE PF/INJ 5 MG/5 ML SDV IV PRN (22:49)
[2018-03-13 23:10] LABS: APPEARANCE,URINE CLEAR; BILIRUBIN,URINE NEGATIVE (NEGATIVE); COLOR,URINE STRAW; GLUCOSE, URINE >=500 mg/dL (NEGATIVE); KETONES,URINE NEGATIVE (NEGATIVE); LEUKOCYTE ESTERASE,URINE NEGATIVE (NEGATIVE); NITRITE,URINE NEGATIVE (NEGATIVE); PROTEIN,URINE NEGATIVE (NEGATIVE); URINE SPECIFIC GRAVITY 1.008; UROBILINOGEN,URINE NEGATIVE mg/dL (<2.0)
[2018-03-14] MEDS: HYDRALAZINE HCL 10 MG TABLET PO SCH ×6 (00:30→23:41)
[2018-03-14 03:29] LABS: ABSOLUTE LYMPHOCYTES (AUTO) 1.4 10^3/uL (0.5-4.7); ABSOLUTE MONOCYTES (AUTO) 0.2 10^3/uL (0.1-1.4); ABSOLUTE NEUT (AUTO) 5.4 10^3/uL (1.7-8.2); BASOPHILS % (AUTO) 0.4 % (0-2); EOSINOPHILS % (AUTO) 0.1 % (0-6); HEMATOCRIT 44.7 % (37.9-51.0); HEMOGLOBIN 14.6 g/dL (13.5-17.0); LYMPHOCYTES % (AUTO) 19.4 % (13-45); MEAN CORPUSCULAR HEMOGLOBIN 28.7 pg (27.0-33.4); MEAN CORPUSCULAR HGB CONC 32.8 g/dL (32.0-36.0); MEAN CORPUSCULAR VOLUME 88 fl (80-97); MONOCYTES % (AUTO) 2.3 % (3-13); PLATELET COUNT 230 10^3/uL (150-450); RED BLOOD COUNT 5.09 10^6/uL (4.35-5.55); RED CELL DISTRIBUTION WIDTH 15.9 % (11.5-14.0); SEGMENTED NEUTROPHILS % (AUTO) 77.8 % (42-78); TOTAL CELLS COUNTED % (AUTO) 100 %
[2018-03-14 03:46] LABS: ANION GAP 12 (5-19); BLOOD UREA NITROGEN 60 mg/dL (7-20); CALCIUM 9.9 mg/dL (8.4-10.2); CARBON DIOXIDE 38 mmol/L (22-30); CHLORIDE 85 mmol/L (98-107); CREATINE KINASE 73 U/L (55-170); POTASSIUM 5.2 mmol/L (3.6-5.0); SODIUM 134.6 mmol/L (137-145)
[2018-03-14 03:58] LABS: CREATINE KINASE MB 1.69 ng/mL (<4.55); TROPONIN I 0.012 ng/mL
[2018-03-14 04:05] LABS: GLUCOSE 619 mg/dL (75-110)
[2018-03-14] MEDS ORDERED: INSULIN LISPRO 100 UNIT/ML 3 ML VIAL IV ONE ×2 (05:00→06:00)
[2018-03-14] MEDS ORDERED: INSULIN LISPRO 100 UNIT/ML 3 ML VIAL SUBCUT ONE (05:00)
--- NOTE | 2018-03-14 05:39 | PDOC H&P ---
History of Present Illness Admission Date/PCP: 03/13/18 21:37 SAVANNAH BLANKENSHIP MD Patient complains of: Shortness of breath and leg edema History of Present Illness: MCKAYLA COYNE is a 67 year old male with a past medical history of stage III chronic kidney disease, COPD, atrial fibrillation, morbid obesity, obstructive sleep apnea with CPAP noncompliance and diabetes. Patient presents with 2 weeks of increasing shortness of breath with exertion, denying chest pain, nausea vomiting, diaphoresis, denying medication changes. Admitting palpitations. In the emergency room he is found to have uncontrolled hypertension and A. fib with RVR. He receives IV Lasix for an elevated BNP of 1200 and referred to the hospitalist for admission. Patient is unclear of his daily weights, dietary restrictions and admits noncompliance with CPAP. He further complains of severe pain and edema in his legs bilaterally as well as a 6 x 2 cm superficial ulcer of the lower leg. Past Medical History Cardiac Medical History: Reports: Atrial Fibrillation, Congestive Heart Failure , Coronary Artery Disease, Myocardial Infarction - november 2016 , Hyperlipidema , Hypertension - MEDICATED Pulmonary Medical History: Reports: Chronic Obstructive Pulmonary Disease (COPD) , Sleep Apnea Denies: Asthma Neurological Medical History: Denies: Seizures Endocrine Medical History: Reports: Diabetes Mellitus Type 2, Obesity GI Medical History: Denies: Hepatitis, Hiatal Hernia Musculoskeltal Medical History: Reports: Arthritis Psychiatric Medical History: Reports: Depression Hematology: Denies: Anemia, Sickle Cell Disease Past Surgical History Past Surgical History: Reports: Pacemaker - November heart stopped CPR started , Tonsillectomy Social History Information Source: Patient, [facility] Records Smoking Status: Former Smoker Frequency of Alcohol Use: Rare Hx Recreational Drug Use: No Hx Prescription Drug Abuse: No - Advance Directive Resuscitation Status: Full Code Family History Family History: COPD, Hypertension Parental Family History Reviewed: Yes Children Family History Reviewed: Yes Sibling(s) Family History Reviewed.: Yes Medication/Allergy Home Medications: Allopurinol [Zyloprim 100 mg Tablet] 200 mg PO DAILY 10/26/16 Atorvastatin Calcium [Lipitor 80 mg Tablet] 80 mg PO QHS 10/26/16 Carvedilol [Coreg 25 mg Tablet] 12.5 mg PO BID 10/26/16 Esomeprazole Magnesium [Nexium] 40 mg PO DAILY 10/26/16 Levothyroxine Sodium [Synthroid 0.1 mg Tablet] 0.125 mg PO DAILY 10/26/16 Multivitamin [Multivitamins] 1 each PO DAILY 10/26/16 [place]-3 Fatty Acids/Fish Oil [Fish Oil 1,000 mg Capsule] 1 each PO BID 10/26/16 Fenofibrate Nanocrystallized [Tricor 145 mg Tablet] 145 mg PO DAILY 10/28/16 Insulin Regular, Human [Humulin R (Hi-Dose) Insulin 500 unit/mL] 30 units SUBCUT BID 10/28/16 Aspirin [Ecotrin 81 mg EC Tablet] 81 mg PO DAILY 10/29/16 Apixaban [Eliquis 2.5 mg Tablet] 2.5 mg PO BID #60 tablet 11/03/16 Bumetanide [Bumex 1 mg Tablet] 2 mg PO DAILY #90 tablet 11/03/16 Metolazone [Zaroxolyn 2.5 mg Tablet] 2.5 mg PO DAILY #0 11/03/16 Potassium Chloride 20 meq PO DAILY #0 11/03/16 Bupropion HCl [Wellbutrin Sr 150 mg Tablet] 1 tab PO Q12 04/06/17 Clonazepam [Klonopin 0.5 mg Tablet Rapid Dissolve] 0.5 mg PO DAILY 04/06/17 Hydralazine HCl [Apresoline 10 mg Tablet] 10 mg PO QID 04/06/17 Magnesium Oxide [Magnesium] 400 mg PO DAILY 04/06/17 Vilazodone HCl [Viibryd] 40 mg PO DAILY 04/06/17 Besifloxacin HCl [Besivance Drops] 1 drop OP ASDIR 05/04/17 Difluprednate [Durezol] 1 drop OP ASDIR 05/04/17 Nepafenac [Ilevro] 1 drop OP ASDIR 05/04/17 Allergies/Adverse Reactions: No Known Allergies Allergy (Verified 04/06/17 13:02) Review of Systems Constitutional: PRESENT: as per HPI, fatigue, weakness, weight gain. ABSENT: fever(s), headache(s), night sweats Eyes: ABSENT: visual disturbances Ears: ABSENT: hearing changes Cardiovascular: PRESENT: as per HPI, dyspnea on exertion, edema, orthropnea, palpitations Respiratory: PRESENT: as per HPI, cough, dyspnea. ABSENT: hemoptysis, sputum Gastrointestinal: ABSENT: abdominal pain, constipation, diarrhea, hematemesis, hematochezia, nausea, vomiting Genitourinary: ABSENT: dysuria, hematuria Musculoskeletal: ABSENT: joint swelling Integumentary: ABSENT: rash, wounds Neurological: ABSENT: abnormal gait, abnormal speech, confusion, dizziness, focal weakness, syncope Psychiatric: ABSENT: anxiety, depression, homidical ideation, suicidal ideation Endocrine: PRESENT: as per HPI. ABSENT: cold intolerance, heat intolerance, polydipsia, polyuria Hematologic/Lymphatic: ABSENT: easy bleeding, easy bruising Physical Exam Vital Signs: Temp Pulse Resp BP Pulse Ox 98.2 F 98 18 122/59 L 92 03/13/18 23:33 03/14/18 02:00 03/13/18 23:33 03/13/18 23:33 03/13/18 23:33 General appearance: PRESENT: no acute distress, cooperative, mild distress, morbidly obese. ABSENT: disheveled, hard of hearing Head exam: PRESENT: atraumatic, normocephalic Eye exam: PRESENT: conjunctiva pink, EOMI, PERRLA. ABSENT: scleral icterus Ear exam: PRESENT: normal external ear exam Mouth exam: PRESENT: moist, tongue midline Neck exam: PRESENT: JVD. ABSENT: carotid bruit, lymphadenopathy, thyromegaly Respiratory exam: PRESENT: accessory muscle use, clear to auscultation dayanna, crackles, prolonged expiratory phas, symmetrical. ABSENT: rales, rhonchi, wheezes Cardiovascular exam: PRESENT: gallop, RRR. ABSENT: diastolic murmur, rubs, systolic murmur Pulses: PRESENT: normal dorsalis pedis pul Vascular exam: PRESENT: normal capillary refill GI/Abdominal exam: PRESENT: distended, hypoactive bowel sounds, normal bowel sounds, soft. ABSENT: guarding, mass, organolmegaly, rebound, tenderness Rectal exam: PRESENT: deferred Extremities exam: PRESENT: +2 edema, other - Left leg with 6 x 2 cm irregular superficial ulcer with serosanguineous drainage Musculoskeletal exam: PRESENT: full ROM Neurological exam: PRESENT: alert, awake, oriented to person, oriented to place , oriented to time, oriented to situation, CN II-XII grossly intact. ABSENT: motor sensory deficit Psychiatric exam: PRESENT: appropriate affect, normal mood. ABSENT: homicidal ideation, suicidal ideation Skin exam: PRESENT: other - Chronic changes of bilateral lower extremity venous stasis Results Laboratory Results: 03/14/18 03:20 03/14/18 03:20 03/13/18 03/14/18 03/14/18 22:40 03:20 03:20 WBC 7.0 RBC 5.09 Hgb 14.6 Hct 44.7 MCV 88 MCH 28.7 MCHC 32.8 RDW 15.9 H Plt Count 230 Seg Neutrophils % 77.8 Lymphocytes % 19.4 Monocytes % 2.3 L Eosinophils % 0.1 Basophils % 0.4 Absolute Neutrophils 5.4 Absolute Lymphocytes 1.4 Absolute Monocytes 0.2 Absolute Eosinophils 0.0 Absolute Basophils 0.0 Sodium 134.6 L Potassium 5.2 H Chloride 85 L Carbon Dioxide 38 H Anion Gap 12 BUN 60 H Creatinine 2.11 H Est GFR ( Amer) 38 L Est GFR (Non-Af Amer) 31 L Glucose 619 H* Calcium 9.9 TSH Urine Color STRAW Urine Appearance CLEAR Urine pH 6.0 Ur Specific [place] 1.008 Urine Protein NEGATIVE Urine Glucose (UA) >=500 H Urine Ketones NEGATIVE Urine Blood NEGATIVE Urine Nitrite NEGATIVE Ur Leukocyte Esterase NEGATIVE Urine WBC (Auto) 0 03/14/18 03:20 WBC RBC Hgb Hct MCV MCH MCHC RDW Plt Count Seg Neutrophils % Lymphocytes % Monocytes % Eosinophils % Basophils % Absolute Neutrophils Absolute Lymphocytes Absolute Monocytes Absolute Eosinophils Absolute Basophils Sodium Potassium Chloride Carbon Dioxide Anion Gap BUN Creatinine Est GFR ( Amer) Est GFR (Non-Af Amer) Glucose Calcium TSH 0.76 Urine Color Urine Appearance Urine pH Ur Specific [place] Urine Protein Urine Glucose (UA) Urine Ketones Urine Blood Urine Nitrite Ur Leukocyte Esterase Urine WBC (Auto) 03/13/18 03/13/18 03/14/18 21:40 21:40 03:20 Creatine Kinase 83 CK-MB (CK-2) 1.76 1.69 Troponin I 0.017 0.012 03/14/18 03:20 Creatine Kinase 73 CK-MB (CK-2) Troponin I Impressions: Chest X-Ray 03/13/18 17:25 IMPRESSION: NO ACUTE RADIOGRAPHIC FINDING IN THE CHEST. Assessment & Plan - Diagnosis (1) Chronic atrial fibrillation Is this a current diagnosis for this admission?: Yes Plan: Optimize Lopressor. Follow-up serial cardiac enzymes, TSH (2) Congestive heart failure Qualifiers: Heart failure type: unspecified Heart failure chronicity: chronic Qualified Code(s): I50.9 - Heart failure, unspecified Is this a current diagnosis for this admission?: Yes Plan: Likely secondary to A. fib with RVR, follow-up 2D echo (3) Dyspnea Qualifiers: Dyspnea type: unspecified Qualified Code(s): R06.00 - Dyspnea, unspecified Is this a current diagnosis for this admission?: Yes Plan: Secondary to #1 and 2, complicated by CPAP noncompliance. (4) Peripheral edema Is this a current diagnosis for this admission?: Yes Plan: Optimize #1 and 2, follow-up GRICELDA GRIMM (5) Renal insufficiency Is this a current diagnosis for this admission?: Yes Plan: Baseline CK D3, avoid excessive diuresis. - Time Time Spent: 50 to 70 Minutes - Inpatient Certification Medical Necessity: Need Close Monitoring Due to Risk of Patient Decompensation
[2018-03-14] MEDS: BUPROPION HCL 100 MG TABLET PO SCH ×4 (05:57→23:41)
[2018-03-14] MEDS ORDERED: INSULIN REG, HUMAN 100 UNIT/ML 3 ML VIAL (PYX) SUBCUT SCH (08:00)
[2018-03-14] MEDS ORDERED: INSULIN REG, HUMAN 100 UNIT/ML 3 ML VIAL SUBCUT SCH (08:00)
[2018-03-14] MEDS ORDERED: (PENDING PHARMACY ID) (Magnesium Oxide [Magnesium] 400 MG) PO SCH (10:00)
[2018-03-14] MEDS ORDERED: (PENDING PHARMACY ID) (Carvedilol [Coreg 25 Mg Tablet] 12.5 MG) PO SCH (10:00)
[2018-03-14] MEDS ORDERED: CARVEDILOL 12.5 MG TABLET PO SCH (10:00)
[2018-03-14] MEDS ORDERED: (PENDING PHARMACY ID) (Clonazepam [Klonopin 0.5 Mg Tablet Rapid Dissolve] 0.5 MG) PO SCH (10:00)
[2018-03-14] MEDS ORDERED: [UNRECOGNIZED DRUG - OTHER] SUBCUT SCH (10:00)
[2018-03-14] MEDS ORDERED: INSULIN REGULAR HUMAN SUBCUT SCH ×2 (10:00→18:00)
[2018-03-14 10:49] LABS: CREATINE KINASE MB 1.57 ng/mL (<4.55)
[2018-03-14 10:55] LABS: TROPONIN I < 0.012 ng/mL
[2018-03-14] MEDS: MAGNESIUM OXIDE 400 MG TABLET PO SCH (11:04)
[2018-03-14] MEDS: DOCUSATE SODIUM 100 MG CAPSULE PO SCH (11:05)
[2018-03-14] MEDS: APIXABAN 2.5 MG TABLET PO SCH ×2 (11:05→21:15)
[2018-03-14] MEDS: FENOFIBRATE NANOCRYSTALLIZED 145 MG TABLET PO SCH (11:05)
[2018-03-14] MEDS: ASPIRIN 81 MG TABLET, ENT COATED PO SCH (11:05)
[2018-03-14] MEDS: POTASSIUM CHLORIDE 10 MEQ TABLET.SA PO SCH (11:06)
[2018-03-14] MEDS: FUROSEMIDE INJ/PF 40 MG/4 ML SDV IV SCH ×2 (11:06→21:15)
[2018-03-14] MEDS: CLONAZEPAM 1 MG TABLET PO SCH (11:08)
[2018-03-14] MEDS ORDERED: DEXTROSE 40% GEL 15 GM TUBE PO PRN ×2 (13:07)
[2018-03-14] MEDS ORDERED: DEXTROSE 50%-WATER 25 GM/50 ML DISP.SYRIN IV PRN ×2 (13:07)
[2018-03-14] MEDS ORDERED: GLUCAGON,HUMAN RECOMB 1 MG INJ IM PRN (13:07)
[2018-03-14] MEDS ORDERED: INSULIN LISPRO 100 UNIT/ML 3 ML VIAL SUBCUT PRN (13:07)
--- NOTE | 2018-03-14 13:21 | PDOC PROGRESS REPORT ---
Subjective Progress Note for:: 03/14/18 Subjective:: Stated that presented because of shortness of breath. He admits suffering from sleep apnea however he does not use his CPAP. Patient was educated about the use of CPAP. Review of systems All organ systems evaluated and negative except as in subjective All significant diagnostics and laboratories have been reviewed Reason For Visit: HEART FAILURE EXACERBATION IZZY NONE COMPLIANCE Physical Exam Vital Signs: Temp Pulse Resp BP Pulse Ox 97.7 F 93 18 105/58 L 91 L 03/14/18 12:02 03/14/18 12:02 03/14/18 12:02 03/14/18 12:02 03/14/18 12:02 Intake & Output 03/13/18 03/14/18 03/15/18 06:59 06:59 06:59 Intake Total 223 Output Total 1150 250 Balance -927 -250 Weight 144.8 kg General appearance: PRESENT: no acute distress, cooperative, morbidly obese, other - Urine smell Head exam: PRESENT: atraumatic, normocephalic Eye exam: PRESENT: conjunctiva pink, EOMI, PERRLA Ear exam: PRESENT: normal external ear exam Mouth exam: PRESENT: moist Neck exam: PRESENT: full ROM. ABSENT: JVD, lymphadenopathy, tenderness Respiratory exam: PRESENT: clear to auscultation dayanna Cardiovascular exam: PRESENT: RRR. ABSENT: diastolic murmur, systolic murmur Vascular exam: PRESENT: normal capillary refill GI/Abdominal exam: PRESENT: normal bowel sounds, soft. ABSENT: tenderness Extremities exam: PRESENT: full ROM, other - 3+ edema Musculoskeletal exam: PRESENT: ambulatory Neurological exam: PRESENT: alert, awake, oriented to person, oriented to place , oriented to time, oriented to situation, CN II-XII grossly intact Psychiatric exam: PRESENT: anxious, normal mood Skin exam: PRESENT: normal color Results Laboratory Results: 03/14/18 03:20 03/14/18 03:20 03/13/18 03/14/18 03/14/18 22:40 03:20 03:20 WBC 7.0 RBC 5.09 Hgb 14.6 Hct 44.7 MCV 88 MCH 28.7 MCHC 32.8 RDW 15.9 H Plt Count 230 Seg Neutrophils % 77.8 Lymphocytes % 19.4 Monocytes % 2.3 L Eosinophils % 0.1 Basophils % 0.4 Absolute Neutrophils 5.4 Absolute Lymphocytes 1.4 Absolute Monocytes 0.2 Absolute Eosinophils 0.0 Absolute Basophils 0.0 Sodium 134.6 L Potassium 5.2 H Chloride 85 L Carbon Dioxide 38 H Anion Gap 12 BUN 60 H Creatinine 2.11 H Est GFR ( Amer) 38 L Est GFR (Non-Af Amer) 31 L Glucose 619 H* Calcium 9.9 TSH Urine Color STRAW Urine Appearance CLEAR Urine pH 6.0 Ur Specific [place] 1.008 Urine Protein NEGATIVE Urine Glucose (UA) >=500 H Urine Ketones NEGATIVE Urine Blood NEGATIVE Urine Nitrite NEGATIVE Ur Leukocyte Esterase NEGATIVE Urine WBC (Auto) 0 03/14/18 03:20 WBC RBC Hgb Hct MCV MCH MCHC RDW Plt Count Seg Neutrophils % Lymphocytes % Monocytes % Eosinophils % Basophils % Absolute Neutrophils Absolute Lymphocytes Absolute Monocytes Absolute Eosinophils Absolute Basophils Sodium Potassium Chloride Carbon Dioxide Anion Gap BUN Creatinine Est GFR ( Amer) Est GFR (Non-Af Amer) Glucose Calcium TSH 0.76 Urine Color Urine Appearance Urine pH Ur Specific [place] Urine Protein Urine Glucose (UA) Urine Ketones Urine Blood Urine Nitrite Ur Leukocyte Esterase Urine WBC (Auto) 03/13/18 03/13/18 03/14/18 21:40 21:40 03:20 Creatine Kinase 83 CK-MB (CK-2) 1.76 1.69 Troponin I 0.017 0.012 03/14/18 03/14/18 03/14/18 03:20 09:45 09:45 Creatine Kinase 73 75 CK-MB (CK-2) 1.57 Troponin I < 0.012 Impressions: Chest X-Ray 03/13/18 17:25 IMPRESSION: NO ACUTE RADIOGRAPHIC FINDING IN THE CHEST. Assessment & Plan - Diagnosis (1) CHF, acute on chronic Qualifiers: Qualified Code(s): I50.9 - Heart failure, unspecified Is this a current diagnosis for this admission?: Yes Plan: According to presentation appears to be mostly right-sided. Echocardiogram ordered to evaluate diastole, systolic and for pulmonary hypertension. Continue diuresis and blood pressure control (2) Chronic atrial fibrillation Is this a current diagnosis for this admission?: Yes Plan: Continue present management (3) Peripheral edema Is this a current diagnosis for this admission?: Yes Plan: Appears to be due to right-sided failure (4) IZZY (obstructive sleep apnea) Is this a current diagnosis for this admission?: Yes Plan: Thierry culprit of presentation. Patient not compliant with CPAP (5) Diabetes Qualifiers: Diabetes mellitus type: type 2 Diabetes mellitus medical terminologist insulin use: unspecified medical terminologist insulin use status Diabetes mellitus complication status : with kidney complications Chronic kidney disease stage: stage 4 (severe) Is this a current diagnosis for this admission?: Yes Plan: To place patient on Levemir, Humalog pre-meal and continue Humalog sliding scale basic glucose before meals and at bedtime (6) Chronic kidney disease (CKD) Qualifiers: Chronic kidney disease stage: stage 4 (severe) Qualified Code(s): N18.4 - Chronic kidney disease, stage 4 (severe) Is this a current diagnosis for this admission?: Yes Plan: Will trend kidney function she is concerned about the possibility of volume contraction/hypoperfusion - Time Time Spent with patient: 15-24 minutes Medications reviewed and adjusted accordingly: Yes Anticipated discharge: Home Within: within 72 hours - Inpatient Certification Based on my medical assessment, after consideration of the patient's comorbidities, presenting symptoms, or acuity I expect that the services needed warrant INPATIENT care.: Yes I certify that my determination is in accordance with my understanding of Medicare's requirements for reasonable and necessary INPATIENT services [42 CFR 412.3e].: Yes Medical Necessity: Significant Comorbidiites Make Outpatient Treatment Too Risky , Need Close Monitoring Due to Risk of Patient Decompensation, Need For Continuous Telemetry Monitoring - IV diuresis
--- NOTE | 2018-03-14 15:53 | Physician Advisory Note ---
Physician Advisor ProgressNote .: Pursuant to the plan for [facility], I have reviewed the medical record for this patient. Physician Advisor Statement: Please consider documenting, if you agree: 1. "Acute Hypoxemic Respiratory Failure, O2 sat in the 80s in triage + accessory muscle use" Thanks! CK
[2018-03-14] MEDS: INSULIN LISPRO 100 UNIT/ML 3 ML VIAL SUBCUT SCH (16:00)
[2018-03-14] MEDS ORDERED: [UNRECOGNIZED DRUG - OTHER] SUBCUT SCH (18:00)
[2018-03-14] MEDS: INSULIN REGULAR SUBCUT SCH (18:00)
[2018-03-14] MEDS: [UNRECOGNIZED DRUG - OTHER] SUBCUT SCH (18:00)
[2018-03-14] MEDS ORDERED: OXYCODONE-ACETAMINOPHEN 5-325 MG TABLET PO PRN (18:13)
--- NOTE | 2018-03-14 19:17 | XCELERA REPORT ---
[address] [address] Transthoracic Echocardiogram Report Name: MCKAYLA COYNE Age: 67 yrs Gender: Male : 1950 Patient Status: Inpatient Patient Location: [address] [place] [address] Study Date: 03/14/2018 03:35 PM Height: 68 in Weight: 319 lb BSA: 2.5 m2 Procedure: A complete two-dimensional transthoracic echocardiogram was performed (2D, M-mode, spectral and color flow Doppler). The study was technically difficult with many images being suboptimal in quality. Reason For Study: chf exacerbation Ordering Physician: CANDIE PASCAL Performed By: Zafar Wallis Interpretation Summary Left ventricular systolic function is borderline reduced. There is mild concentric left ventricular hypertrophy. The left ventricle is grossly normal size. Doppler measurements suggest pseudonormalized left ventricular relaxation, which is associated with grade II/IV or mild to moderate diastolic dysfunction Regional wall motion abnormalities cannot be excluded due to limited visualization. Right ventricular function cannot be assessed due to poor image quality. The right ventricle is mildly dilated. The right atrium is mild to moderately dilated. The left atrium is mildly dilated. There is no mitral regurgitation noted. There is no mitral valve stenosis. No aortic regurgitation is present. There is no aortic valve stenosis There is no tricuspid stenosis. No tricuspid regurgitation. The aortic root is not well visualized. The inferior vena cava was not well visualized There is no pericardial effusion. The study was technically difficult with many images being suboptimal in quality. MMode/2D Measurements & Calculations RVDd: 4.6 cm LVIDd: 6.2 cm FS: 27.2 % Ao root diam: 3.3 cm IVSd: 1.2 cm LVIDs: 4.5 cm EDV(Teich): 190.9 ml LVPWd: 1.1 cm ESV(Teich): 91.6 ml Ao root area: 8.5 cm2 EF(Teich): 52.0 % LA dimension: 4.1 cm Doppler Measurements & Calculations MV E max kelly: MV P1/2t max kelly: Ao V2 max: LV V1 max P.2 cm/sec 100.2 cm/sec 123.1 cm/sec 3.2 mmHg MV A max kelly: MV P1/2t: 42.7 msec Ao max PG: LV V1 max: 53.3 cm/sec 6.1 mmHg 89.8 cm/sec MV E/A: 1.9 MVA(P1/2t): 5.2 cm2 MV dec slope: 687.2 cm/sec2 PA V2 max: 77.5 cm/sec PA max P.4 mmHg Left Ventricle The left ventricle is grossly normal size. There is mild concentric left ventricular hypertrophy. Left ventricular systolic function is borderline reduced. Doppler measurements suggest pseudonormalized left ventricular relaxation, which is associated with grade II/IV or mild to moderate diastolic dysfunction. Regional wall motion abnormalities cannot be excluded due to limited visualization. Right Ventricle The right ventricle is mildly dilated. Right ventricular function cannot be assessed due to poor image quality. Atria The right atrium is mild to moderately dilated. The left atrium is mildly dilated. Interarterial septum not well visualized and not well dopplered. Cannot comment on ASD/PFO presence. Mitral Valve The mitral valve is not well visualized. There is no mitral valve stenosis. There is no mitral regurgitation noted. Aortic Valve The aortic valve is not well visualized secondary to technical limitations. There is no aortic valve stenosis. No aortic regurgitation is present. Tricuspid Valve The tricuspid valve is not well visualized secondary to technical limitations. There is no tricuspid stenosis. No tricuspid regurgitation. Pulmonic Valve The pulmonic valve is not well visualized. Great Vessels The aortic root is not well visualized. The inferior vena cava was not well visualized. Effusions There is no pericardial effusion. : CANDIE PASCAL > Liam Fleming
[2018-03-14] MEDS: CARVEDILOL 12.5 MG TABLET PO SCH (20:52)
[2018-03-14] MEDS: INSULIN DETEMIR 100 UNIT/ML 3 ML PEN SUBCUT SCH (21:13)
[2018-03-14] MEDS: PREGABALIN 50 MG CAPSULE PO SCH (21:14)
[2018-03-14] MEDS: ATORVASTATIN CALCIUM 80 MG TABLET PO SCH (21:15)
[2018-03-15] MEDS: LANSOPRAZOLE 30 MG TAB.RAP.DR PO SCH (06:22)
[2018-03-15] MEDS: PREGABALIN 50 MG CAPSULE PO SCH ×3 (06:23→22:43)
[2018-03-15] MEDS: LEVOTHYROXINE SODIUM 0.05 MG TABLET PO SCH (06:23)
[2018-03-15] MEDS: INSULIN LISPRO 100 UNIT/ML 3 ML VIAL SUBCUT SCH ×2 (07:49→11:05)
[2018-03-15] MEDS ORDERED: LEVOTHYROXINE SODIUM 0.1 MG TABLET PO SCH (10:00)
[2018-03-15] MEDS: CLONAZEPAM 1 MG TABLET PO SCH (10:00)
[2018-03-15] MEDS: DOCUSATE SODIUM 100 MG CAPSULE PO SCH (11:05)
[2018-03-15] MEDS: ALLOPURINOL 100 MG TABLET PO SCH (11:05)
[2018-03-15] MEDS: MAGNESIUM OXIDE 400 MG TABLET PO SCH (11:05)
[2018-03-15] MEDS: POTASSIUM CHLORIDE 10 MEQ TABLET.SA PO SCH (11:05)
[2018-03-15] MEDS: FUROSEMIDE INJ/PF 40 MG/4 ML SDV IV SCH (11:05)
[2018-03-15] MEDS: ASPIRIN 81 MG TABLET, ENT COATED PO SCH (11:05)
[2018-03-15] MEDS: INSULIN DETEMIR 100 UNIT/ML 3 ML PEN SUBCUT SCH (11:05)
[2018-03-15] MEDS: FENOFIBRATE NANOCRYSTALLIZED 145 MG TABLET PO SCH (11:05)
[2018-03-15] MEDS: CARVEDILOL 12.5 MG TABLET PO SCH ×2 (11:05→22:44)
[2018-03-15] MEDS: APIXABAN 2.5 MG TABLET PO SCH ×2 (11:05→22:44)
[2018-03-15] MEDS: HYDRALAZINE HCL 10 MG TABLET PO SCH (11:20)
[2018-03-15 12:12] LABS: ANION GAP 14 (5-19); BLOOD UREA NITROGEN 66 mg/dL (7-20); CALCIUM 10.3 mg/dL (8.4-10.2); CHLORIDE 86 mmol/L (98-107); GLUCOSE 154 mg/dL (75-110); PHOSPHORUS 5.3 mg/dL (2.5-4.5); POTASSIUM 4.3 mmol/L (3.6-5.0); SODIUM 140.2 mmol/L (137-145)
[2018-03-15 12:24] LABS: CARBON DIOXIDE 40 mmol/L (22-30)
[2018-03-15] MEDS ORDERED: CARVEDILOL 12.5 MG TABLET PO ONE (13:00)
--- NOTE | 2018-03-15 16:28 | XCELERA REPORT ---
[address] [address] Lower Extremity Venous Evaluation Name: MCKAYLA COYNE Age: 67 yrs Gender: Male : 1950 Patient Status: Inpatient Patient Location: [address] [place] [address] Study Date: 03/15/2018 03:35 PM Procedure: Color flow and duplex imaging bilaterally of the veins of the lower extremities as well as the Common Femoral veins. Reason For Study: Lower extremity swelling Ordering Physician: WISAM JORGENSEN Performed By: Zafar Wallis Right Sided Venous Evaluation SSV and GSV not visualized. Normal vessel filling wall to wall, compression and augmentation as well as Colour flow down to the infrageniculate veins. Left Sided Venous Evaluation SSV and GSV not visualized. Normal vessel filling wall to wall, compression and augmentation as well as Colour flow down to the infrageniculate veins. Interpretation Summary No duplex evidence of DVT or obstruction in the bilateral lower extremities. : WISAM JORGENSEN > Jonathan Powers
[2018-03-15] MEDS ORDERED: GUAIFENESIN/D-METHORPHAN (200-20 MG) SYRUP 10 ML PO PRN (17:12)
--- NOTE | 2018-03-15 17:28 | PDOC PROGRESS REPORT ---
Subjective Progress Note for:: 03/15/18 Subjective:: Chief Creative Officer: Dr. Tony. PCP: Dr. Carlisle 67-year-old male with past medical history of Atrial fibrillation Eliquis Hypothyroidism Depression CKD stage III Insulin-dependent diabetes Diastolic and systolic CHF COPD Obstructive sleep apnea Hypertension Hyperlipidemia Obesity Coronary artery disease [place] November 2016 He presented to the hospital on March 13 with shortness of breath and worsening lower extremity edema. Emergency room he was found to have uncontrolled hypertension and A. fib with RVR. He was given intravenous Lasix and referred for admission. He was noted to have a 6 x 2 cm superficial ulcer of the left lower leg. He complains of a cough with mucopurulent expectoration. Reason For Visit: HEART FAILURE EXACERBATION IZZY NONE COMPLIANCE Physical Exam Vital Signs: Temp Pulse Resp BP Pulse Ox 97.8 F 81 20 113/62 94 03/15/18 15:57 03/15/18 15:57 03/15/18 15:57 03/15/18 15:57 03/15/18 15:57 Intake & Output 03/14/18 03/15/18 03/16/18 06:59 06:59 06:59 Intake Total 223 644 Output Total 1150 1260 Balance -927 -616 Weight 144.8 kg 144.7 kg General appearance: PRESENT: obese Head exam: PRESENT: atraumatic Ear exam: PRESENT: normal external ear exam Neck exam: ABSENT: tracheal deviation Respiratory exam: PRESENT: crackles, symmetrical Cardiovascular exam: ABSENT: systolic murmur GI/Abdominal exam: PRESENT: normal bowel sounds, soft. ABSENT: tenderness Rectal exam: PRESENT: deferred Extremities exam: PRESENT: pedal edema Neurological exam: PRESENT: alert, awake, oriented to person, oriented to place , oriented to time, oriented to situation Psychiatric exam: PRESENT: appropriate affect Skin exam: PRESENT: other - Skin ulceration, no purulence erythema of both legs - chronic Results Laboratory Results: 03/14/18 03:20 03/15/18 11:38 03/15/18 11:38 Sodium 140.2 Potassium 4.3 Chloride 86 L Carbon Dioxide 40 H* Anion Gap 14 BUN 66 H Creatinine 1.92 H Est GFR ( Amer) 42 L Est GFR (Non-Af Amer) 35 L Glucose 154 H Calcium 10.3 H Phosphorus 5.3 H Magnesium 2.4 H 03/13/18 03/13/18 03/14/18 21:40 21:40 03:20 Creatine Kinase 83 CK-MB (CK-2) 1.76 1.69 Troponin I 0.017 0.012 03/14/18 03/14/18 03/14/18 03:20 09:45 09:45 Creatine Kinase 73 75 CK-MB (CK-2) 1.57 Troponin I < 0.012 Impressions: Chest X-Ray 03/13/18 17:25 IMPRESSION: NO ACUTE RADIOGRAPHIC FINDING IN THE CHEST. Assessment & Plan - Diagnosis (1) Acute respiratory failure with hypoxia Is this a current diagnosis for this admission?: Yes Plan: Due to CHF exacerbation. (2) Acute CHF (congestive heart failure) Is this a current diagnosis for this admission?: Yes Plan: IV diuretics. Monitor intake and output. Monitor kidney function. Outpatient medications. (3) Diabetes 1.5, managed as type 1 Is this a current diagnosis for this admission?: Yes Plan: On Lantus and sliding scale. Monitor blood glucose. (4) Atrial fibrillation with RVR Is this a current diagnosis for this admission?: Yes Plan: On Eliquis. Continue rate control (5) Hypothyroid Qualifiers: Hypothyroidism type: unspecified Qualified Code(s): E03.9 - Hypothyroidism , unspecified Is this a current diagnosis for this admission?: Yes Plan: Continue Synthroid. (6) Obstructive sleep apnea Is this a current diagnosis for this admission?: Yes Plan: Not compliant with CPAP. (7) CKD (chronic kidney disease) stage 3, GFR 30-59 ml/min Is this a current diagnosis for this admission?: Yes Plan: Continue to monitor. (8) COPD (chronic obstructive pulmonary disease) Is this a current diagnosis for this admission?: Yes Plan: No evidence of exacerbation. Continue outpatient inhalers (9) Cough Is this a current diagnosis for this admission?: Yes Plan: Suspect acute bronchitis. We will get a 2 view chest x-ray rule out developing infiltrate. Robitussin-DM as needed and will start on doxycycline. - Time Time Spent with patient: 35 or more minutes
[2018-03-15] MEDS: INSULIN REGULAR SUBCUT SCH (17:39)
[2018-03-15] MEDS: MUPIROCIN 2% OINTMENT 22 GM TP SCH ×2 (17:39→20:25)
[2018-03-15] MEDS: [UNRECOGNIZED DRUG - OTHER] SUBCUT SCH (17:39)
[2018-03-15] MEDS ORDERED: INSULIN DETEMIR 100 UNIT/ML 3 ML PEN SUBCUT SCH ×2 (18:00→22:00)
[2018-03-15] MEDS: DOXYCYCLINE HYCLATE 100 MG TABLET PO SCH (18:35)
--- NOTE | 2018-03-15 18:51 | RADIOLOGY REPORT (SQ) ---
EXAM DESCRIPTION: CHEST 2 VIEWS COMPLETED DATE/TIME: 03/15/2018 6:31 pm REASON FOR STUDY: cough COMPARISON: 10/29/2016 EXAM PARAMETERS: NUMBER OF VIEWS: two views TECHNIQUE: Digital Frontal and Lateral radiographic views of the chest acquired. RADIATION DOSE: NA LIMITATIONS: none FINDINGS: LUNGS AND PLEURA: No opacities, masses or pneumothorax. No pleural effusion. MEDIASTINUM AND HILAR STRUCTURES: No masses or contour abnormalities. HEART AND VASCULAR STRUCTURES: Borderline cardiomegaly with mild pulmonary vascular congestion but no CHF. BONES: No acute findings. HARDWARE: Pacemaker/defibrillator. OTHER: No other significant finding. IMPRESSION: Borderline cardiomegaly with pulmonary vascular congestion but no jarred CHF. TECHNICAL DOCUMENTATION: JOB ID: [id number] [employer]- All Rights Reserved Reading location - IP/workstation name: [email or web address]
[2018-03-15] MEDS: ATORVASTATIN CALCIUM 80 MG TABLET PO SCH (22:43)
[2018-03-16 05:39] LABS: BLOOD UREA NITROGEN 72 mg/dL (7-20); CALCIUM 10.1 mg/dL (8.4-10.2); CHLORIDE 87 mmol/L (98-107); GLUCOSE 87 mg/dL (75-110); POTASSIUM 4.3 mmol/L (3.6-5.0); SODIUM 141.1 mmol/L (137-145)
[2018-03-16] MEDS: LEVOTHYROXINE SODIUM 0.05 MG TABLET PO SCH (05:56)
[2018-03-16] MEDS: DOXYCYCLINE HYCLATE 100 MG TABLET PO SCH (05:56)
[2018-03-16] MEDS: LANSOPRAZOLE 30 MG TAB.RAP.DR PO SCH (05:56)
[2018-03-16] MEDS: PREGABALIN 50 MG CAPSULE PO SCH (05:57)
[2018-03-16 06:46] LABS: ANION GAP 17 (5-19); CARBON DIOXIDE 37 mmol/L (22-30)
[2018-03-16 08:09] VITALS: BP 102/54
[2018-03-16] MEDS ORDERED: SPIRONOLACTONE 25 MG TABLET PO SCH (10:00)
[2018-03-16] MEDS ORDERED: ASPIRIN 81 MG TABLET, ENT COATED PO SCH (10:00)
[2018-03-16] MEDS ORDERED: BUMETANIDE INJ/PF 1 MG/4 ML SDV IV SCH (10:00)
[2018-03-16] MEDS ORDERED: (PENDING PHARMACY ID) (Spironolactone [Aldactone] 50 MG) PO SCH (10:00)
[2018-03-16] MEDS: APIXABAN 2.5 MG TABLET PO SCH (10:27)
[2018-03-16] MEDS: ALLOPURINOL 100 MG TABLET PO SCH (10:27)
[2018-03-16] MEDS: POTASSIUM CHLORIDE 10 MEQ TABLET.SA PO SCH (10:27)
[2018-03-16] MEDS: MAGNESIUM OXIDE 400 MG TABLET PO SCH (10:27)
[2018-03-16] MEDS: FENOFIBRATE NANOCRYSTALLIZED 145 MG TABLET PO SCH (10:28)
[2018-03-16] MEDS: MUPIROCIN 2% OINTMENT 22 GM TP SCH (10:28)
[2018-03-16] MEDS: CARVEDILOL 12.5 MG TABLET PO SCH (10:28)
[2018-03-16] MEDS: DOCUSATE SODIUM 100 MG CAPSULE PO SCH (10:28)
--- NOTE | 2018-03-16 11:57 | PDOC DISCHARGE SUMMARY ---
General - Admit/Disc Date/PCP Admission Date/Primary Care Provider: 03/13/18 21:37 SAVANNAH BLANKENSHIP MD Cardiology: Dr. Otero Discharge Date: 03/16/18 - Discharge Diagnosis (1) Acute respiratory failure with hypoxia Is this a current diagnosis for this admission?: Yes (2) Acute CHF (congestive heart failure) Is this a current diagnosis for this admission?: Yes Summary: Diastolic and Systolic (3) Diabetes 1.5, managed as type 1 Is this a current diagnosis for this admission?: Yes (4) Atrial fibrillation with RVR Is this a current diagnosis for this admission?: Yes (5) Hypothyroid Is this a current diagnosis for this admission?: Yes (6) Obstructive sleep apnea Is this a current diagnosis for this admission?: Yes Summary: Supposed to be on CPAP at home, not compliant (7) CKD (chronic kidney disease) stage 3, GFR 30-59 ml/min Is this a current diagnosis for this admission?: Yes Summary: Creatinine 2.2 on the day of discharge. (8) COPD (chronic obstructive pulmonary disease) Is this a current diagnosis for this admission?: Yes Summary: Stable (9) Acute bronchitis Is this a current diagnosis for this admission?: Yes Summary: Course of Doxycycline on antitussives. Chest x-ray did not show an infiltrate. - Additional Information Resuscitation Status: Full Code Discharge Diet: Cardiac, Diabetic Discharge Activity: Activity As Tolerated, Balance Activity w/Rest, Weigh Daily Home Medications: Allopurinol [Zyloprim 100 mg Tablet] 200 mg PO DAILY 10/26/16 Levothyroxine Sodium [Synthroid 0.1 mg Tablet] 0.125 mg PO DAILY 10/26/16 Fenofibrate Nanocrystallized [Tricor 145 mg Tablet] 145 mg PO DAILY 10/28/16 Insulin Regular, Human [Humulin R (Hi-Dose) Insulin 500 unit/mL] 30 units SUBCUT QAM 10/28/16 Aspirin [Ecotrin 81 mg EC Tablet] 81 mg PO DAILY 10/29/16 Magnesium Oxide [Magnesium] 400 mg PO BID 04/06/17 Insulin Regular, Human [Humulin R (Hi-Dose) Insulin 500 unit/mL] 20 unit SUBCUT QPM 03/14/18 Metolazone [Zaroxolyn 5 mg Tablet] 5 mg PO DAILY 03/14/18 Pantoprazole Sodium [Protonix] 40 mg PO DAILY 03/14/18 Potassium Chloride 40 meq PO DAILY 03/14/18 Pregabalin [Lyrica] 150 mg PO BID 03/14/18 Spironolactone [Aldactone] 50 mg PO BID 03/14/18 Apixaban [Eliquis 2.5 mg Tablet] 2.5 mg PO Q12 tablet 03/16/18 Atorvastatin Calcium [Lipitor 80 mg Tablet] 80 mg PO QHS tablet 03/16/18 Carvedilol [Coreg 12.5 mg Tablet] 12.5 mg PO Q12 tablet 03/16/18 Doxycycline Hyclate [Vibramycin 100 mg Tablet] 100 mg PO Q12A 5 Days tablet 09/23 Glucagon,Human Recombinant [Glucagen Inj 1 mg Vial] 1 mg IM PRN PRN vial Guaifenesin/D-Methorphan Hb [Robitussin-Dm Syrup 10 ml Udcup] 10 ml PO QIDP PRN syrup 03/16/18 Mupirocin [Bactroban 2% Ointment 22 gm] 1 applic TP BID tube 03/16/18 Pregabalin [Lyrica 50 mg Capsule] 50 mg PO Q8 capsule 03/16/18 Torsemide [Demadex 20 mg Tablet] 40 mg PO BID tablet 03/16/18 History of Present Illness History of Present Illness: MCKAYLA COYNE is a 67 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 PCP: Dr. Blankenship Past medical history: Atrial fibrillation Eliquis Hypothyroidism Depression CKD stage III Insulin-dependent diabetes Diastolic and systolic CHF COPD Obstructive sleep apnea Hypertension Hyperlipidemia Obesity Coronary artery disease AR November 2016 He presented to the hospital on March 13 with shortness of breath and worsening lower extremity edema. Emergency room he was found to have uncontrolled hypertension and A. fib with RVR. He was given intravenous Lasix and referred for admission. He was noted to have a 6 x 2 cm superficial ulcer of the left lower leg, which developed after rupture of a blister. No evidence of infection or purulence. He complained of a cough with yellowish expectoration. Was started on a course of Doxycycline-even a prescription for a 5-day course. Heart rate and blood pressure were running low. Coreg was cut back to 12.5 mg twice daily-1 month prescription written. Furosemide was replaced by torsemide 40 mg twice a day-1 month prescription written. Chlorthiazide was stopped. He feels well and reports that he is back to his baseline. The patient is stable for discharge home. He is to get a follow-up basic metabolic panel checked on March 20. Hospital Course Hospital Course: above Physical Exam Vital Signs: Temp Pulse Resp BP Pulse Ox 97.6 F 90 18 102/54 L 94 03/16/18 08:00 03/16/18 08:00 03/16/18 08:00 03/16/18 08:00 03/16/18 08:00 Intake & Output 03/15/18 03/16/18 03/17/18 06:59 06:59 06:59 Intake Total 644 3047 Output Total 1260 2022 Balance -616 1025 Weight 144.7 kg 144.8 kg General appearance: PRESENT: no acute distress, obese Head exam: PRESENT: normocephalic Respiratory exam: PRESENT: clear to auscultation dayanna, symmetrical, unlabored GI/Abdominal exam: PRESENT: soft. ABSENT: tenderness Rectal exam: PRESENT: deferred Extremities exam: PRESENT: pedal edema Neurological exam: PRESENT: alert, awake, oriented to person, oriented to place , oriented to time, oriented to situation Psychiatric exam: PRESENT: appropriate affect Results Laboratory Results: 03/14/18 03:20 03/16/18 04:09 03/15/18 03/16/18 11:38 04:09 Sodium 140.2 141.1 Potassium 4.3 4.3 Chloride 86 L 87 L Carbon Dioxide 40 H* 37 H Anion Gap 14 17 BUN 66 H 72 H Creatinine 1.92 H 2.26 H Est GFR ( Amer) 42 L 35 L Est GFR (Non-Af Amer) 35 L 29 L Glucose 154 H 87 Calcium 10.3 H 10.1 Phosphorus 5.3 H Magnesium 2.4 H 03/13/18 03/13/18 03/14/18 21:40 21:40 03:20 Creatine Kinase 83 CK-MB (CK-2) 1.76 1.69 Troponin I 0.017 0.012 03/14/18 03/14/18 03/14/18 03:20 09:45 09:45 Creatine Kinase 73 75 CK-MB (CK-2) 1.57 Troponin I < 0.012 Impressions: Chest X-Ray 03/15/18 00:00 IMPRESSION: Borderline cardiomegaly with pulmonary vascular congestion but no jarred CHF. Qualifiers - * PATIENT BEING DISCHARGED WITH ANY OF THE FOLLOWING DIAGNOSIS: Heart Failure VTE patient discharged on overlapping Therapy?: Yes Stroke Pt being discharged on Anti-thrombolytic therapy?: Yes Stroke Pt being discharged on Anti-coagulation therapy?: Yes Stroke Pt being discharged on Statins?: Yes AR Pt being discharged on Aspirin therapy?: Yes AR Pt being discharged on Statins?: Yes AR Pt discharged ACEI/ARBS?: No Reason(s) for not prescribing ACEI/ARBS:: Medical Contraindication HF Pt being discharged on ACEI for LVEF less than 40%?: No Reason(s) for not prescribing ACEI:: Medical Contraindication HF Pt being discharged on ARBS for LVEF less than 40%?: No Reason(s) for not prescribing ARBS:: Medical Contraindication HF Pt with Afib discharged with Warfarin?: Yes HF Pt discharged on evidence-based Beta Wallace:: Yes Plan Time Spent: Greater than 30 Minutes
--- NOTE | 2018-03-16 12:11 | PDOC CONSULTATION ---
Consultation Consult Date: 03/16/18 Attending physician:: WISAM JORGENSEN Consult reason:: CHF History of Present Illness Admission Date/PCP: 03/13/18 21:37 SAVANNAH BLANKENSHIP MD Patient complains of: Shortness of breath and pedal edema History of Present Illness: MCKAYLA COYNE is a 67 year old male with a past medical history of stage III chronic kidney disease, COPD, atrial fibrillation, morbid obesity, obstructive sleep apnea with CPAP noncompliance and diabetes. Patient presents with 2 weeks of increasing shortness of breath with exertion, denying chest pain, nausea vomiting, diaphoresis, denying medication changes. Admitting palpitations. In the emergency room he is found to have uncontrolled hypertension and A. fib with RVR. He receives IV Lasix for an elevated BNP of 1200 and referred to the hospitalist for admission. Patient is unclear of his daily weights, dietary restrictions and admits noncompliance with CPAP. He further complains of severe pain and edema in his legs bilaterally as well as a 6 x 2 cm superficial ulcer of the lower leg. This history obtained by the hospitalist was reviewed and confirmed. Patient gives history of chronic kidney disease. Claims that he was told to have only 30% of kidney functions left. Currently patient claims to be feeling at baseline and is expressing wishes to be discharged home. Past Medical History Cardiac Medical History: Reports: Atrial Fibrillation, Congestive Heart Failure , Coronary Artery Disease, Myocardial Infarction - november 2016 , Hyperlipidema , Hypertension - MEDICATED Pulmonary Medical History: Reports: Chronic Obstructive Pulmonary Disease (COPD) , Sleep Apnea Denies: Asthma Neurological Medical History: Denies: Seizures Endocrine Medical History: Reports: Diabetes Mellitus Type 2, Obesity GI Medical History: Denies: Hepatitis, Hiatal Hernia Musculoskeltal Medical History: Reports: Arthritis Psychiatric Medical History: Reports: Depression Hematology: Denies: Anemia, Sickle Cell Disease Past Surgical History Past Surgical History: Reports: Internal Defibrillator, Pacemaker - November heart stopped CPR started , Tonsillectomy Social History Information Source: Patient Smoking Status: Former Smoker Frequency of Alcohol Use: Rare Hx Recreational Drug Use: No Hx Prescription Drug Abuse: No - Advance Directive Resuscitation Status: Full Code Surrogate healthcare decision maker:: Patient's spouse Sue Family History Family History: COPD, Hypertension Parental Family History Reviewed: Yes Children Family History Reviewed: Yes Sibling(s) Family History Reviewed.: Yes Medication/Allergy Home Medications: Allopurinol [Zyloprim 100 mg Tablet] 200 mg PO DAILY 10/26/16 Levothyroxine Sodium [Synthroid 0.1 mg Tablet] 0.125 mg PO DAILY 10/26/16 Fenofibrate Nanocrystallized [Tricor 145 mg Tablet] 145 mg PO DAILY 10/28/16 Insulin Regular, Human [Humulin R (Hi-Dose) Insulin 500 unit/mL] 30 units SUBCUT QAM 10/28/16 Aspirin [Ecotrin 81 mg EC Tablet] 81 mg PO DAILY 10/29/16 Magnesium Oxide [Magnesium] 400 mg PO BID 04/06/17 Insulin Regular, Human [Humulin R (Hi-Dose) Insulin 500 unit/mL] 20 unit SUBCUT QPM 03/14/18 Metolazone [Zaroxolyn 5 mg Tablet] 5 mg PO DAILY 03/14/18 Pantoprazole Sodium [Protonix] 40 mg PO DAILY 03/14/18 Potassium Chloride 40 meq PO DAILY 03/14/18 Pregabalin [Lyrica] 150 mg PO BID 03/14/18 Spironolactone [Aldactone] 50 mg PO BID 03/14/18 Apixaban [Eliquis 2.5 mg Tablet] 2.5 mg PO Q12 tablet 03/16/18 Atorvastatin Calcium [Lipitor 80 mg Tablet] 80 mg PO QHS tablet 03/16/18 Carvedilol [Coreg 12.5 mg Tablet] 12.5 mg PO Q12 tablet 03/16/18 Doxycycline Hyclate [Vibramycin 100 mg Tablet] 100 mg PO Q12A 5 Days tablet 09/23 Glucagon,Human Recombinant [Glucagen Inj 1 mg Vial] 1 mg IM PRN PRN vial Guaifenesin/D-Methorphan Hb [Robitussin-Dm Syrup 10 ml Udcup] 10 ml PO QIDP PRN syrup 03/16/18 Mupirocin [Bactroban 2% Ointment 22 gm] 1 applic TP BID tube 03/16/18 Pregabalin [Lyrica 50 mg Capsule] 50 mg PO Q8 capsule 03/16/18 Torsemide [Demadex 20 mg Tablet] 40 mg PO BID tablet 03/16/18 Allergies/Adverse Reactions: No Known Allergies Allergy (Verified 04/06/17 13:02) Review of Systems Review of Systems: Please see history of present illness and past medical history as wall. Constitutional: No fever or chills reported. Head : No recent chronic headaches, recent head injury. Eyes: No recent eye pain, diplopia, redness, discharge, acute visual changes. Ears: No recent chronic ear pain, acute hearing loss, ear discharge. Oral cavity: No recent ulcerations, bleeding, oral cavity discomfort. Neck: No recent acute neck pain reported. Hematologic: No recent easy bruising or bleeding. Lymphatic: No recent lymph node enlargement reported. Cardiovascular system review: See history of present illness. No recent chest pains. No recent defibrillator discharges. Respiratory system review: No hemoptysis or blood clots in the lungs reported. Shortness of breath on exertion Gastrointestinal system review: Negative for any recent acute hematemesis, melena. Genitourinary system review: No recent acute or chronic hematuria, flank pain, UTI etc. reported. Skin system review: Negative for any recent abnormal bruising, no rash, no pruritus reported. Skin ulcerations reported Neurologic: No prior history of strokes, mini strokes, seizure disorder. Psychologic: No history of major psychosis or major depression reported. Musculoskeletal: Minor aches and pains reported. No acute joint swelling reported. Endocrine: No recent polyuria, polydipsia, recent heat or cold intolerance. Physical Exam Vital Signs: Temp Pulse Resp BP Pulse Ox 97.6 F 90 18 102/54 L 94 03/16/18 08:00 03/16/18 08:00 03/16/18 08:00 03/16/18 08:00 03/16/18 08:00 Intake & Output 03/15/18 03/16/18 03/17/18 06:59 06:59 06:59 Intake Total 644 3047 Output Total 1260 2022 Balance -616 1025 Weight 144.7 kg 144.8 kg Exam: GENERAL: well-nourished and in no acute distress. Alert and oriented x3 HEAD: Atraumatic, normocephalic. EYES: Pupils equal round and reactive to light, extraocular movements intact, sclera anicteric, conjunctiva are normal. ENT: TMs normal, nares patent, oropharynx clear without exudates. Moist mucous membranes. No oral ulcerations or bleeding gums noted NECK: supple without lymphadenopathy. Trachea is central. No cervical or axillary lymphadenopathy noted. Carotids are 2+, JVD WNL it was difficult to assess but feel this is not elevated. LUNGS: Respiration seems nonlabored, no significant accessory muscle action noted. Breath sounds clear to auscultation bilaterally and equal noted. No wheezes rales or rhonchi noted. No significant dullness noted on percussion. CHEST: Palpation of the chest wall shows no significant chest wall tenderness. Defibrillator noted left-sided chest. HEART: [place] [employer], No PSH, 1/6 MAGGIE aortic area, 1/6 mesa systolic murmur mitral area, no rubs, no gallops. ABDOMEN: Soft, no significant tenderness appreciated, normoactive bowel sounds. No guarding, no rebound. No rigidity noted . No masses appreciated. EXTREMITIES: Pedal pulses are 1-2+, no calf tenderness noted. No clubbing or cyanosis. 2+ chronic pedal edema noted NEUROLOGICAL: Focused neurological exam showed no significant neurologic deficit. Normal speech, no focal weakness appreciated. PSYCH: Normal mood, normal affect. Judgment and insight within normal limits. SKIN: No significant ecchymosis, skin is noted to be warm. MUSCULOSKELETAL EXAM: No significant acute joint swelling noted. Results Laboratory Results: 03/14/18 03:20 03/16/18 04:09 03/15/18 03/16/18 11:38 04:09 Sodium 140.2 141.1 Potassium 4.3 4.3 Chloride 86 L 87 L Carbon Dioxide 40 H* 37 H Anion Gap 14 17 BUN 66 H 72 H Creatinine 1.92 H 2.26 H Est GFR ( Amer) 42 L 35 L Est GFR (Non-Af Amer) 35 L 29 L Glucose 154 H 87 Calcium 10.3 H 10.1 Phosphorus 5.3 H Magnesium 2.4 H 03/13/18 03/13/18 03/14/18 21:40 21:40 03:20 Creatine Kinase 83 CK-MB (CK-2) 1.76 1.69 Troponin I 0.017 0.012 03/14/18 03/14/18 03/14/18 03:20 09:45 09:45 Creatine Kinase 73 75 CK-MB (CK-2) 1.57 Troponin I < 0.012 EKG Comments: Atrial fibrillation with controlled ventricular response. Right bundle branch block pattern is noted. Impressions: Chest X-Ray 03/15/18 00:00 IMPRESSION: Borderline cardiomegaly with pulmonary vascular congestion but no jarred CHF. Assessment & Plan - Diagnosis (1) Congestive heart failure Qualifiers: Heart failure type: combined systolic and diastolic Heart failure chronicity: acute on chronic Qualified Code(s): I50.43 - Acute on chronic combined systolic (congestive) and diastolic (congestive) heart failure Is this a current diagnosis for this admission?: Yes (2) Peripheral edema Is this a current diagnosis for this admission?: Yes (3) COPD (chronic obstructive pulmonary disease) Qualifiers: Emphysema type: unspecified Is this a current diagnosis for this admission?: Yes (4) Chronic atrial fibrillation Is this a current diagnosis for this admission?: Yes (5) Chronic kidney disease (CKD) Qualifiers: Chronic kidney disease stage: stage 4 (severe) Qualified Code(s): N18.4 - Chronic kidney disease, stage 4 (severe) Is this a current diagnosis for this admission?: Yes (6) IZZY (obstructive sleep apnea) Is this a current diagnosis for this admission?: Yes - Notes Notes: Congestive heart failure: Combined systolic and diastolic. There is some element of right-sided contribution. At this point recommend patient to be placed on Demadex or torsemide at 40 mg p.o. twice daily. This would be roughly equivalent to the IV diuretic dose patient is receiving. Continue with spironolactone at current dose, continue Zaroxolyn at current dose, could stop chlorthalidone. Medications reviewed shows that patient not on any REBEL inhibitor, ARB or entresto. Not entirely sure why he is not on these. Can be evaluated as an outpatient. Peripheral edema: This is multifactorial. Believe mostly related to venous insufficiency as patient also seems to have a ulcer on the left mahoney area. Patient will benefit from wound care consultation. At this point continue diuretic therapy. COPD: Currently stable. Obstructive sleep apnea: Patient has admitted to being noncompliant. Patient would benefit from improving compliance with CPAP therapy. Obesity: Patient will benefit from weight loss. Chronic atrial fibrillation: Recommend rate control and chronic anticoagulation. Chronic kidney disease: It seems patient renal functions at baseline. Patient does see someone locally for his kidney doctor problems. - Time Time Spent: 30 to 50 Minutes - CODE STATUS was discussed, patient remains full code. Surrogate decision-maker patient's spouse. Multiple medical problems were addressed. More than 50% of the time spent coordinating care, discussing management plans with involved caregivers. Management plans discussed with involved personnels. Medical decision making was of moderate to high complexity , patient's has multiple comorbidities. Medications reviewed and adjusted accordingly: Yes
[2018-03-16] MEDS ORDERED: INSULIN GLARGINE,HUM.REC.ANLOG 300 UNIT/3 ML INSULN.PEN SUBCUT SCH (18:00)
[2018-03-16] MEDS ORDERED: TORSEMIDE 20 MG TABLET PO SCH (18:00)
== END 2018-03-16 12:45 | disposition home or self-care (01) | DRG 291 ==
LOC: ER 17:13 → EH 21:37 → 5 23:08
PROVIDERS: ADMIT Internal Medicine; ATTEND Internal Medicine
PROC: 5A09357 Assistance with Respiratory Ventilation, Less than 24 Consecutive Hours, Continuous Positive Airway Pressure (ICD-10-PCS; principal; 2018-03-13)
DX: I13.0 Hypertensive heart and chronic kidney disease with heart failure and stage 1 through stage 4 chronic kidney disease, or unspecified chronic kidney disease (principal); J96.01 Acute respiratory failure with hypoxia; I50.43 Acute on chronic combined systolic (congestive) and diastolic (congestive) heart failure; J44.0 Chronic obstructive pulmonary disease with (acute) lower respiratory infection; N18.4 Chronic kidney disease, stage 4 (severe); J44.1 Chronic obstructive pulmonary disease with (acute) exacerbation; E11.22 Type 2 diabetes mellitus with diabetic chronic kidney disease; E03.9 Hypothyroidism, unspecified; G47.33 Obstructive sleep apnea (adult) (pediatric); J20.9 Acute bronchitis, unspecified; F32.9 Major depressive disorder, single episode, unspecified; E78.00 Pure hypercholesterolemia, unspecified; I25.10 Atherosclerotic heart disease of native coronary artery without angina pectoris; E66.01 Morbid (severe) obesity due to excess calories; M19.90 Unspecified osteoarthritis, unspecified site; I48.2 Chronic atrial fibrillation; I45.10 Unspecified right bundle-branch block; I25.2 Old myocardial infarction; Z79.82 Long term (current) use of aspirin; Z79.4 Long term (current) use of insulin; Z79.899 Other long term (current) drug therapy; Z91.19 Patient's noncompliance with other medical treatment and regimen; Z95.810 Presence of automatic (implantable) cardiac defibrillator; Z87.891 Personal history of nicotine dependence; Z82.49 Family history of ischemic heart disease and other diseases of the circulatory system; Z83.6 Family history of other diseases of the respiratory system
CPT/HCPCS: 36415; 71045; 71046; 80048; 80053; 81001; 82550; 82553; 82803; 82962; 83036; 83735; 83880; 84100; 84443; 84484; 85025; 93005; 93010; 93306; 93970; 94640; 96374; 96375; 99291; J1815; J1940; J2930; J3490; J7620

== ENCOUNTER → 2018-03-22 | Outpatient (CLI) | payer MEDICARE, OTHER ==
[2018-03-22 12:59] LABS: ALBUMIN 4.3 g/dL (3.5-5.0); ANION GAP 10 (5-19); BLOOD UREA NITROGEN 57 mg/dL (7-20); CALCIUM 10.3 mg/dL (8.4-10.2); CARBON DIOXIDE 38 mmol/L (22-30); CHLORIDE 95 mmol/L (98-107); GLUCOSE 74 mg/dL (75-110); SODIUM 143.4 mmol/L (137-145)
[2018-03-23 11:40] LABS: CREATININE URINE 37.9 mg/dL (Not Estab.); MICROALBUMIN URINE 6.6 ug/mL (Not Estab.)
== END ==
LOC: OD 11:28
PROVIDERS: ATTEND Internal Medicine Nephrology
DX: N17.9 Acute kidney failure, unspecified (principal); N18.3 Chronic kidney disease, stage 3 (moderate); I25.5 Ischemic cardiomyopathy
CPT/HCPCS: 36415; 80048; 82040; 82043; 82306; 82570; 83735; 83970; 84100

== ENCOUNTER → 2018-03-23 | Outpatient (CLI) | payer MEDICARE, OTHER ==
--- NOTE | 2018-03-23 14:49 | RADIOLOGY REPORT (SQ) ---
EXAM DESCRIPTION: U/S RETROPERITON (RENAL/AORTA) COMPLETED DATE/TIME: 03/23/2018 2:20 pm REASON FOR STUDY: ACUTE KIDNEY FAILURE, UNSPECIFIED N17.9 ACUTE KIDNEY FAILURE, UNSPECIFIED COMPARISON: CT angio chest 03/31/2017 TECHNIQUE: Dynamic and static grayscale images acquired of the kidneys and bladder and recorded on P ACS. Additional selected color Doppler and spectral images recorded. LIMITATIONS: Limited view of the right lower pole kidney from right upper quadrant bowel gas FINDINGS: RIGHT KIDNEY: Normal size, 11 cm. Normal echogenicity. No solid or suspicious masses. No h ydronephrosis. No calcifications. LEFT KIDNEY: Normal size, 13 cm. Normal echogenicity. No solid or suspicious masses. No hydronephros is. No calcifications. BLADDER: No masses. OTHER FINDINGS: No other significant finding. IMPRESSION: No hydronephrosis TECHNICAL DOCUMENTATION: JOB ID: [id number] [employer]- All Rights Reserved Reading location - IP/workstation name: [email or web address]
== END ==
LOC: RAD 13:58
PROVIDERS: ATTEND Internal Medicine Nephrology
DX: N17.9 Acute kidney failure, unspecified (principal); N18.3 Chronic kidney disease, stage 3 (moderate)
CPT/HCPCS: 76770

== ENCOUNTER 2018-10-08 07:17 | Day surgery (SDC) | payer MEDICARE, OTHER ==
[~2018-10-08 07:17] MED LIST changes: -TETRACAINE HCL 0.5% OPH SOLN 0.6 ML DROPERETTE OS PRN; -TETRACAINE HCL 0.5% OPH SOLN 2 ML OS PRN
[2018-10-08] MEDS ORDERED: MIDAZOLAM 2 MG/2 ML INJ ONE (07:25)
[2018-10-08] MEDS ORDERED: CHONDR SU A NA/HYALUR INTRAOC KIT (SURGICARE) ONE (07:33)
[2018-10-08] MEDS ORDERED: LIDOCAINE 1% INJ-PF (10 MG/ML) 30 ML SDV ONE (07:33)
[2018-10-08] MEDS ORDERED: TRYPAN BLUE 0.06 % OPH SOLN 0.5 ML DISP.SYRIN ONE (07:33)
[2018-10-08] MEDS ORDERED: EPINEPHRINE INJ/PF 1 MG/1 ML AMPULE ONE (07:33)
[2018-10-08] MEDS: TROPICAMIDE 1% OPH SOLN 3 ML OS PRN ×3 (07:40→08:05)
[2018-10-08] MEDS: TETRACAINE HCL 0.5% OPH SOLN 4 ML OS PRN ×3 (07:40→08:24)
[2018-10-08] MEDS: CYCLOPENTOLATE 0.2%/PHENYLEPHRINE 1% OPH SOLN 2 ML OS PRN ×3 (07:40→08:05)
[2018-10-08] MEDS: BESIFLOXACIN HCL 0.6% OPH SUSP 5 ML BOTTLE OS PRN ×3 (07:41→08:47)
[2018-10-08] MEDS ORDERED: LIDOCAINE 1%/PHENYLEPHRINE 1.5% 1 ML VIAL ONE (07:43)
--- NOTE | 2018-10-08 14:38 | [facility] OPERATIVE REPORT E ---
[facility] Operative Report NAME: MCKAYLA COYNE AGE: 68Y DATE OF SURGERY: 10/08/2018 ROOM: PREOPERATIVE DIAGNOSIS: CATARACT, LEFT EYE. POSTOPERATIVE DIAGNOSIS: CATARACT, LEFT EYE. OPERATION: Cataract extraction with insertion of an IOL of the left eye. SURGEON: OH HUTCHINSON M.D. ANESTHESIA: Topical. PROCEDURE: After obtaining appropriate consent, the patient's left eye was prepped and draped in sterile fashion as well as the surgeon in a sterile manner and cataract surgery was started. First a paracentesis blade was used to make a side-port incision. Viscoelastic was used to inflate the anterior chamber. Next a 2.4 mm incision was made with a 2.4 mm blade, clear corneal temporally. A continuous capsulorrhexis was made using a cystotome and Utrata forceps. Following this hydrodissection was carried out to make the lens fully loose and mobile and it was rotated 90 degrees. Following this, a oasnwj-fvz-movhkgo technique was used to phacoemulsify the lens with a CDE of 6.33. The remaining cortex was removed with irrigation/aspiration. Provisc was instilled into the capsular bag to inflate the bag. A SN60WF, 20.0 diopter lens was placed. The remaining viscoelastic material was removed with irrigation/aspiration. Following this, the incision was found to be watertight. Besivance was instilled into the eye and a protective shield was placed over the eye. The patient returned to the postoperative recovery in stable condition. DICTATING PHYSICIAN: OH HUTCHINSON M.D. [id number] PHY#: [id number] ID: [id number] JOB#: [id number] ACCT: [id number] cc:OH HUTCHINSON M.D. >
--- NOTE | 2018-10-08 14:42 | [facility] DISCHARGE SUMMARY E ---
[facility] Discharge Summary NAME: MCKAYLA COYNE AGE: 68Y ADMITTED: 10/08/2018 DISCHARGED: 10/08/2018 DIAGNOSIS: CATARACT, LEFT EYE. SUMMARY: This is a 68-year-old male who underwent cataract extraction, left eye. He underwent surgery because he was having trouble seeing road signs, words on the television, and small print. DISCHARGE INSTRUCTIONS: They should on a regular diet, no bending at the waist, and no heavy lifting. They should use their Besivance, Ilevro, and Durezol at 3 p.m. and 8 p.m. and sleep with a rigid shield. I will see him for a 1-day postoperative tomorrow. DICTATING PHYSICIAN: OH HUTCHINSON M.D. [id number] PHY#: [id number] ID: [id number] JOB#: [id number] ACCT: [id number] cc:OH HUTCHINSON M.D. >
== END 2018-10-08 09:38 | disposition home or self-care (01) ==
LOC: SC 07:17
PROVIDERS: ATTEND Internal Medicine
DX: H25.812 Combined forms of age-related cataract, left eye (principal)
CPT/HCPCS: 82962; 66984; V2632; J2250; J3490 ×3; A9270; J0171; J2370; 142

== ENCOUNTER 2019-12-17 14:29 | Observation (INO) | payer MEDICARE, OTHER ==
--- NOTE | 2019-12-17 15:16 | ER Document Report ---
ED Medical Screen (RME) - General Chief Complaint: Shortness Of Breath Stated Complaint: SHORT OF BREATH Time Seen by Provider: 12/17/19 15:11 Primary Care Provider: SAVANNAH BLANKENSHIP MD [Primary Care Provider] - Follow up as needed Mode of Arrival: Ambulatory Information source: Patient Notes: 69-year-old male with history of CHF presents to the emergency department with complaints of shortness of breath and weight gain. Reports he is gained approximately 10 pounds in the past week. Reports Dr. Otero sent him here. Denies fever vomiting diarrhea. I have greeted and performed a rapid initial assessment of this patient. A comprehensive ED assessment and evaluation of the patient, analysis of test results and completion of the medical decision making process will be conducted by additional ED providers. TRAVEL OUTSIDE OF THE [place] IN LAST 30 DAYS: No - Related Data Allergies/Adverse Reactions: No Known Allergies Allergy (Verified 10/23/19 14:45) Past Medical History - Social History Frequency of alcohol use: None - Past Medical History Cardiac Medical History: Reports: Hx Atrial Fibrillation, Hx Congestive Heart Failure, Hx Coronary Artery Disease, Hx Heart Attack - november 2016 , Hx Hypercholesterolemia, Hx Hypertension - MEDICATED Pulmonary Medical History: Reports: Hx COPD, Hx Sleep Apnea Denies: Hx Asthma Neurological Medical History: Denies: Hx Cerebrovascular Accident, Hx Seizures Endocrine Medical History: Reports: Hx Diabetes Mellitus Type 2 Renal/ Medical History: Denies: Hx Peritoneal Dialysis GI Medical History: Denies: Hx Hepatitis, Hx Hiatal Hernia, Hx Ulcer Musculoskeltal Medical History: Reports Hx Arthritis Psychiatric Medical History: Reports: Hx Depression Infectious Medical History: Denies: Hx Hepatitis Past Surgical History: Reports: Hx Cardiac Surgery - Ablation, Hx Internal Defibrillator, Hx Pacemaker - November heart stopped CPR started , Hx Tonsillectomy. Denies: Hx Open Heart Surgery Physical Exam - Vital signs Vitals: Temp Pulse Resp BP Pulse Ox 98.6 F 87 22 H 150/71 H 92 12/17/19 14:48 12/17/19 14:48 12/17/19 14:48 12/17/19 14:48 12/17/19 14:48 Course - Vital Signs Vital signs: Temp Pulse Resp BP Pulse Ox 98.6 F 87 22 H 150/71 H 92 12/17/19 14:48 12/17/19 14:48 12/17/19 14:48 12/17/19 14:48 12/17/19 14:48 Doctor's Discharge - Discharge Referrals: SAVANNAH BLANKENSHIP MD [Primary Care Provider] - Follow up as needed
--- NOTE | 2019-12-17 15:49 | RADIOLOGY REPORT (SQ) ---
EXAM DESCRIPTION: CHEST 2 VIEWS COMPLETED DATE/TIME: 12/17/2019 3:36 pm REASON FOR STUDY: sob COMPARISON: 10/23/2019 EXAM PARAMETERS: NUMBER OF VIEWS: two views TECHNIQUE: Digital Frontal and Lateral radiographic views of the chest acquired. RADIATION DOSE: NA LIMITATIONS: none FINDINGS: LUNGS AND PLEURA: No opacities, masses or pneumothorax. No pleural effusion. MEDIASTINUM AND HILAR STRUCTURES: No masses or contour abnormalities. HEART AND VASCULAR STRUCTURES: Borderline heart size. No pulmonary edema. BONES: No acute findings. HARDWARE: Pacemaker/defibrillator. OTHER: No other significant finding. IMPRESSION: Borderline cardiomegaly without pulmonary edema. TECHNICAL DOCUMENTATION: JOB ID: [id number] 2010 [employer]- All Rights Reserved Reading location - IP/workstation name: [email or web address]
[2019-12-17 16:23] LABS: ABSOLUTE EOSINOPHILS # (AUTO) 0.2 10^3/uL (0.0-0.6); ABSOLUTE LYMPHOCYTES (AUTO) 2.1 10^3/uL (0.5-4.7); ABSOLUTE MONOCYTES (AUTO) 0.8 10^3/uL (0.1-1.4); ABSOLUTE NEUT (AUTO) 4.3 10^3/uL (1.7-8.2); BASOPHILS % (AUTO) 0.3 % (0-2); EOSINOPHILS % (AUTO) 2.4 % (0-6); HEMATOCRIT 40.1 % (37.9-51.0); HEMOGLOBIN 13.4 g/dL (13.5-17.0); LYMPHOCYTES % (AUTO) 27.9 % (13-45); MEAN CORPUSCULAR HEMOGLOBIN 29.1 pg (27.0-33.4); MEAN CORPUSCULAR HGB CONC 33.4 g/dL (32.0-36.0); MEAN CORPUSCULAR VOLUME 87 fl (80-97); MONOCYTES % (AUTO) 11.3 % (3-13); PLATELET COUNT 207 10^3/uL (150-450); RED BLOOD COUNT 4.61 10^6/uL (4.35-5.55); RED CELL DISTRIBUTION WIDTH 15.1 % (11.5-14.0); SEGMENTED NEUTROPHILS % (AUTO) 58.1 % (42-78); TOTAL CELLS COUNTED % (AUTO) 100 %; WHITE BLOOD COUNT 7.5 10^3/uL (4.0-10.5)
[2019-12-17 16:44] LABS: ALBUMIN 3.8 g/dL (3.5-5.0); ALKALINE PHOSPHATASE 55 U/L (38-126); ANION GAP 10 (5-19); ASPARTATE AMINO TRANSFERASE 23 U/L (17-59); BILIRUBIN,DIRECT 0.2 mg/dL (0.0-0.4); BILIRUBIN,TOTAL 0.9 mg/dL (0.2-1.3); BLOOD UREA NITROGEN 22 mg/dL (7-20); CALCIUM 9.5 mg/dL (8.4-10.2); CARBON DIOXIDE 29 mmol/L (22-30); CHLORIDE 102 mmol/L (98-107); CREATINE KINASE 119 U/L (55-170); GLUCOSE 167 mg/dL (75-110); POTASSIUM 4.5 mmol/L (3.6-5.0); TOTAL PROTEIN 6.9 g/dL (6.3-8.2)
[2019-12-17 16:54] LABS: TROPONIN I 0.019 ng/mL
--- NOTE | 2019-12-17 17:11 | EKG REPORT ---
SEVERITY:- ABNORMAL ECG - - VENTRICULAR-PACED COMPLEXES : Confirmed by: Jaden Pemberton MD 17-Dec-2019 17:11:06
[2019-12-17] MEDS ORDERED: FUROSEMIDE INJ/PF 40 MG/4 ML SDV IV ONE (17:55)
--- NOTE | 2019-12-17 18:07 | ER Document Report ---
ED General - General Chief Complaint: Shortness Of Breath Stated Complaint: SHORT OF BREATH Time Seen by Provider: 12/17/19 15:11 Primary Care Provider: SAVANNAH BLANKENSHIP MD [Primary Care Provider] - Follow up as needed Mode of Arrival: Ambulatory TRAVEL OUTSIDE OF THE [place] IN LAST 30 DAYS: No - HPI Notes: Patient presents complaining of shortness of breath. He states approximately 10 days ago he went to his physician and some laboratories were drawn. He states the next day he received a phone call telling him to stop taking his diuretic pill. He states is been about 10 days since he has taken the diuretic pill. He states approximately 5 to 6 days ago. Patient denies any significant pain. He states he is put on approximately 10 pounds in the last 5 days. He also states his legs have been swelling and his belly feels distended. He states he has moderate to severe shortness of breath. It is constant. Is worse with exertion and better with rest. No significant radiation of the symptoms. - Related Data Allergies/Adverse Reactions: No Known Allergies Allergy (Verified 10/23/19 14:45) Past Medical History - General Information source: Patient - Social History Smoking Status: Never Smoker Frequency of alcohol use: None Drug Abuse: None Family History: COPD, Hypertension Patient has suicidal ideation: No Patient has homicidal ideation: No - Past Medical History Cardiac Medical History: Reports: Hx Atrial Fibrillation, Hx Congestive Heart Failure, Hx Coronary Artery Disease, Hx Heart Attack - november 2016 , Hx Hypercholesterolemia, Hx Hypertension - MEDICATED Pulmonary Medical History: Reports: Hx COPD, Hx Sleep Apnea Denies: Hx Asthma Neurological Medical History: Denies: Hx Cerebrovascular Accident, Hx Seizures Endocrine Medical History: Reports: Hx Diabetes Mellitus Type 2 Renal/ Medical History: Denies: Hx Peritoneal Dialysis GI Medical History: Denies: Hx Hepatitis, Hx Hiatal Hernia, Hx Ulcer Musculoskeletal Medical History: Reports Hx Arthritis Psychiatric Medical History: Reports: Hx Depression Infectious Medical History: Denies: Hx Hepatitis Past Surgical History: Reports: Hx Cardiac Surgery - Ablation, Hx Internal Defibrillator, Hx Pacemaker - November heart stopped CPR started , Hx Tonsillectomy. Denies: Hx Open Heart Surgery Review of Systems - Review of Systems Constitutional: Malaise, Weakness. denies: Chills, Fever Cardiovascular: denies: Chest pain, Palpitations Respiratory: Cough, Short of breath -: Yes All other systems reviewed and negative Physical Exam - Vital signs Vitals: Temp Pulse Resp BP Pulse Ox 98.6 F 87 22 H 150/71 H 92 12/17/19 14:48 12/17/19 14:48 12/17/19 14:48 12/17/19 14:48 12/17/19 14:48 Interpretation: Hypoxic, Tachypneic - General General appearance: Alert In distress: Mild - Respiratory - HEENT Head: Normocephalic, Atraumatic Eyes: Normal Pupils: PERRL - Respiratory Respiratory status: Respiratory distress - mild, Labored, Tachypnea Chest status: Nontender Breath sounds: Decreased air movement Chest palpation: Normal - Cardiovascular Rhythm: Regular Heart sounds: Normal auscultation Murmur: No - Abdominal Inspection: Normal Distension: No distension Bowel sounds: Normal Tenderness: Nontender Organomegaly: No organomegaly - Back Back: Normal, Nontender - Extremities General upper extremity: Normal inspection, Nontender, Normal color, Normal ROM, Normal temperature General lower extremity: Edema - 2+ bilaterally, Normal ROM, Normal temperature. No: May's sign - Neurological Neuro grossly intact: Yes Cognition: Normal Orientation: AAOx4 [place] Coma Scale Eye Opening: Spontaneous [place] Coma Scale Verbal: Oriented [place] Coma Scale Motor: Obeys Commands [place] Coma Scale Total: 15 Speech: Normal Motor strength normal: LUE, RUE, LLE, RLE Sensory: Normal - Psychological Associated symptoms: Normal affect, Normal mood - Skin Skin Temperature: Warm Skin Moisture: Dry Skin Color: Normal Course - Re-evaluation Re-evalutation: 12/17/19 18:17 Patient presents with some mild tachypnea some labored respirations and hypoxia. The history seems consistent with a CHF exacerbation since patient just discontinued his diuretic. He has had leg swelling distention and increasing shortness of breath. He does have an elevated BNP. There is no evidence of cardiac ischemia patient has no chest pain and patient has a paced rhythm on EKG. He has no infectious signs or symptoms. I will give the patient's Lasix and have consulted the hospitalist for admission. - Vital Signs Vital signs: Temp Pulse Resp BP Pulse Ox 98.6 F 87 22 H 150/71 H 92 12/17/19 14:48 12/17/19 14:48 12/17/19 14:48 12/17/19 14:48 12/17/19 14:48 - Laboratory Result Diagrams: 12/17/19 15:58 12/17/19 15:58 Laboratory results interpreted by me: 12/17/19 12/17/19 12/17/19 15:58 15:58 15:58 Hgb 13.4 L RDW 15.1 H BUN 22 H Creatinine 1.32 H Est GFR (MDRD) Non-Af 54 L Glucose 167 H NT-Pro-B Natriuret Pep 1460 H - Diagnostic Test Radiology reviewed: Image reviewed, Reports reviewed - EKG Interpretation by Me Rate: Normal - 86 Rhythm: Other - paced [place]/QRS: IVCD Discharge - Discharge Clinical Impression: CHF exacerbation Qualifiers: Heart failure type: systolic Qualified Code(s): I50.23 - Acute on chronic systolic (congestive) heart failure Condition: Fair Disposition: ADMITTED INPATIENT Admitting Provider: Mona (Hospitalist) Unit Admitted: Telemetry Referrals: SAVANNAH BLANKENSHIP MD [Primary Care Provider] - Follow up as needed
[2019-12-17] MEDS ORDERED: DEXTROSE 40% GEL 15 GM TUBE PO PRN ×2 (18:34)
[2019-12-17] MEDS ORDERED: DEXTROSE 50%-WATER 25 GM/50 ML DISP.SYRIN IV PRN ×2 (18:34)
[2019-12-17] MEDS ORDERED: GLUCAGON,HUMAN RECOMB 1 MG INJ IM PRN (18:34)
[2019-12-17] MEDS ORDERED: IPRATROPIUM/ALBUTEROL 0.5-2.5 MG/3 ML AMPUL NEB PRN (18:41)
--- NOTE | 2019-12-17 18:41 | PDOC H&P ---
History of Present Illness Admission Date/PCP: 12/17/19 18:23 SAVANNAH BLANKENSHIP MD Patient complains of: SOB History of Present Illness: MCKAYLA COYNE is a 69 year old male with a past medical history of CHF, prior pacemaker placement and prior ablation, CKD, atrial fibrillation on Eliquis, hypothyroidism, COPD, chronic hypoxemic respiratory failure on 2 L of home O2, hypertension and insulin-dependent diabetes mellitus who presented with increasing shortness of breath. Patient says that he noticed that his bipedal edema has been progressively getting worse since last Monday. He says it is associated with increasing shortness of breath as well. He reports that he got a call from his furnace cleaner's nurse last Monday and was told to hold off on taking his home torsemide due to some blood test results. He is not able to tell me if it was a creatinine issue or an electrolyte issue. He says that his pedal edema and shortness of breath continued to worsen and he was taken off torsemide. He denies chest pain. Patient does report that he has been having increasing thirst which she thinks is from his diabetes hence he has been drinking at least 3.5L or more of water every day. Past Medical History Cardiac Medical History: Reports: Atrial Fibrillation, Congestive Heart Failure, Coronary Artery Disease, Myocardial Infarction - november 2016 , Hyperlipidema, Hypertension - MEDICATED Pulmonary Medical History: Reports: Chronic Obstructive Pulmonary Disease (COPD), Sleep Apnea Denies: Asthma Neurological Medical History: Denies: Seizures Endocrine Medical History: Reports: Diabetes Mellitus Type 2 GI Medical History: Denies: Hepatitis, Hiatal Hernia Musculoskeltal Medical History: Reports: Arthritis Psychiatric Medical History: Reports: Depression Hematology: Denies: Anemia, Sickle Cell Disease Past Surgical History Past Surgical History: Reports: Internal Defibrillator, Pacemaker - November heart stopped CPR started , Tonsillectomy Social History Smoking Status: Never Smoker Frequency of Alcohol Use: Rare Hx Recreational Drug Use: No Hx Prescription Drug Abuse: No Family History Family History: COPD, Hypertension Parental Family History Reviewed: Yes - no premature CAD Children Family History Reviewed: No Sibling(s) Family History Reviewed.: No Medication/Allergy Home Medications: Allopurinol [Zyloprim 100 mg Tablet] 200 mg PO DAILY 12/17/19 Apixaban [Eliquis 5 mg Tablet] 10 mg PO Q12 12/17/19 Aspirin [Ecotrin 81 mg EC Tablet] 81 mg PO DAILY 12/17/19 Atorvastatin Calcium [Lipitor 80 mg Tablet] 80 mg PO QHS 12/17/19 Fenofibrate Nanocrystallized [Fenofibrate] 145 mg PO DAILY 12/17/19 Ibuprofen [Motrin 800 mg Tablet] 800 mg PO PRN PRN 12/17/19 Insulin Regular, Human [Humulin R (Hi-Dose) Insulin 500 unit/mL] 0 unit SQ .PER SLD SCALE 12/17/19 Levothyroxine Sodium [Synthroid] 0.125 mg PO Q6AM 12/17/19 Lisinopril [Prinivil 5 mg Tablet] 5 mg PO DAILY 12/17/19 Magnesium Oxide [Mag-Ox 400 mg Tablet] 400 mg PO BID 12/17/19 Metolazone [Zaroxolyn 5 mg Tablet] 5 mg PO PRN PRN 12/17/19 Metoprolol Tartrate [Lopressor 50 mg Tablet] 50 mg PO Q12 12/17/19 Multivitamin [One-A-Day Essential] 1 tab PO DAILY 12/17/19 Pantoprazole Sodium [Protonix] 40 mg PO Q6AM 12/17/19 Torsemide [Demadex 20 mg Tablet] 20 mg PO Q12 12/17/19 Venlafaxine HCl [Effexor 75 mg Tablet] 75 mg PO Q12 12/17/19 Allergies/Adverse Reactions: No Known Allergies Allergy (Verified 10/23/19 14:45) Review of Systems All systems: reviewed and no additional remarkable complaints except as stated - as mentioned in HPI Physical Exam Vital Signs: Temp Pulse Resp BP Pulse Ox 98.6 F 87 22 H 150/71 H 92 12/17/19 14:48 12/17/19 14:48 12/17/19 14:48 12/17/19 14:48 12/17/19 14:48 Intake & Output 12/16/19 12/17/19 12/18/19 06:59 06:59 06:59 Weight 298 lb 15.149 oz General appearance: PRESENT: no acute distress, well-developed, well-nourished Head exam: PRESENT: atraumatic, normocephalic Eye exam: PRESENT: conjunctiva pink, EOMI, PERRLA. ABSENT: scleral icterus Ear exam: PRESENT: normal external ear exam Mouth exam: PRESENT: moist, tongue midline Neck exam: ABSENT: carotid bruit, JVD, lymphadenopathy, thyromegaly Respiratory exam: PRESENT: rhonchi. ABSENT: rales, wheezes Cardiovascular exam: ABSENT: diastolic murmur, systolic murmur Pulses: PRESENT: normal dorsalis pedis pul GI/Abdominal exam: PRESENT: normal bowel sounds, soft. ABSENT: distended, guarding, mass, organolmegaly, rebound, tenderness Rectal exam: PRESENT: deferred Extremities exam: PRESENT: +2 edema Neurological exam: PRESENT: alert, awake, oriented to person, oriented to place, oriented to time, oriented to situation, CN II-XII grossly intact. ABSENT: motor sensory deficit Results Laboratory Results: 12/17/19 15:58 12/17/19 15:58 12/17/19 12/17/19 15:58 15:58 WBC 7.5 RBC 4.61 Hgb 13.4 L Hct 40.1 MCV 87 MCH 29.1 MCHC 33.4 RDW 15.1 H Plt Count 207 Seg Neutrophils % 58.1 Sodium 141.1 Potassium 4.5 Chloride 102 Carbon Dioxide 29 Anion Gap 10 BUN 22 H Creatinine 1.32 H Est GFR ( Amer) > 60 Glucose 167 H Calcium 9.5 Total Bilirubin 0.9 AST 23 Alkaline Phosphatase 55 Total Protein 6.9 Albumin 3.8 12/17/19 12/17/19 15:58 15:58 Creatine Kinase 119 Troponin I 0.019 NT-Pro-B Natriuret Pep 1460 H Impressions: Chest X-Ray 12/17/19 15:14 IMPRESSION: Borderline cardiomegaly without pulmonary edema. Assessment and Plan - Diagnosis (1) Acute respiratory failure with hypoxia Is this a current diagnosis for this admission?: Yes Plan: Acute on chronic hypoxic respiratory failure. Likely secondary to CHF exacerbation. (2) Acute CHF (congestive heart failure) Is this a current diagnosis for this admission?: Yes Plan: Likely combination from noncompliance to water restriction and discontinuation diuretics. We will continue patient on IV Lasix. Will recheck another echo to reassess LVEF as his last echo was in 2018. (3) COPD (chronic obstructive pulmonary disease) Qualifiers: Emphysema type: unspecified Is this a current diagnosis for this admission?: Yes Plan: Not in exacerbation. Breathing treatments as needed. (4) IDDM (insulin dependent diabetes mellitus) Is this a current diagnosis for this admission?: Yes (5) Hypothyroid Qualifiers: Hypothyroidism type: unspecified Qualified Code(s): E03.9 - Hypothyroidism, unspecified Is this a current diagnosis for this admission?: Yes - Time Time Spent with patient: 25-34 minutes
--- NOTE | 2019-12-17 19:13 | ADVANCED CARE ---
- Diagnosis (1) Acute respiratory failure with hypoxia Diagnosis Current: Yes (2) Acute CHF (congestive heart failure) Diagnosis Current: Yes (3) COPD (chronic obstructive pulmonary disease) Diagnosis Current: Yes (4) IDDM (insulin dependent diabetes mellitus) Diagnosis Current: Yes (5) Hypothyroid Diagnosis Current: Yes Resuscitation Status: Full Code Discussion: Discussed with patient with at the bedside. He says that he is a full code and prefers to receive chest compressions, defibrillation or mechanical ventilation if the need arises. He says that his , Sue is his surrogate medical decision maker.
[2019-12-17 19:35] LABS: APPEARANCE,URINE CLEAR; BILIRUBIN,URINE NEGATIVE (NEGATIVE); COLOR,URINE YELLOW; GLUCOSE, URINE 50 mg/dL (NEGATIVE); KETONES,URINE NEGATIVE (NEGATIVE); LEUKOCYTE ESTERASE,URINE NEGATIVE (NEGATIVE); NITRITE,URINE NEGATIVE (NEGATIVE); PROTEIN,URINE NEGATIVE (NEGATIVE); URINE SPECIFIC GRAVITY 1.015; UROBILINOGEN,URINE NEGATIVE mg/dL (<2.0)
[2019-12-17 19:45] LABS: FREE T3 2.61 pg/mL (2.77-5.27); FREE T4 (FREE THYROXINE) 1.39 ng/dL (0.78-2.19)
[2019-12-17] MEDS ORDERED: INFLUENZA QUAD (6MOS+) 2019-20 VAC 0.5 ML SYR IM ONE (20:26)
[2019-12-17] MEDS: INSULIN LISPRO 100 UNIT/ML 3 ML VIAL SUBCUT SCH (21:59)
[2019-12-17] MEDS ORDERED: FUROSEMIDE INJ/PF 40 MG/4 ML SDV IV SCH (22:00)
[2019-12-17] MEDS: POTASSIUM CHLORIDE 10 MEQ TABLET.ER PO SCH (22:04)
[2019-12-18 07:11] LABS: ANION GAP 7 (5-19); BLOOD UREA NITROGEN 34 mg/dL (7-20); CALCIUM 10.1 mg/dL (8.4-10.2); CARBON DIOXIDE 34 mmol/L (22-30); CHLORIDE 100 mmol/L (98-107); GLUCOSE 125 mg/dL (75-110)
[2019-12-18] MEDS: INSULIN LISPRO 100 UNIT/ML 3 ML VIAL SUBCUT SCH ×4 (08:00→21:51)
[2019-12-18] MEDS ORDERED: FUROSEMIDE INJ/PF 20 MG/2 ML SDV IV SCH (10:00)
[2019-12-18] MEDS ORDERED: FUROSEMIDE INJ/PF 40 MG/4 ML SDV IV SCH (10:00)
[2019-12-18] MEDS: APIXABAN 2.5 MG TABLET PO SCH ×2 (11:16→17:57)
[2019-12-18] MEDS: POTASSIUM CHLORIDE 10 MEQ TABLET.ER PO SCH (11:16)
--- NOTE | 2019-12-18 13:47 | PDOC PROGRESS REPORT ---
Subjective Progress Note for:: 12/18/19 Subjective:: No acute event overnight. Patient reports his shortness of breath is significantly improved. He also reports his leg tightness and swelling is better today. Denies chest pain. Creatinine has trended up likely related to IV diuresis. Reason For Visit: ACUTE HYPOXIC RESP FAILURE, CHF EXACERBATION Physical Exam Vital Signs: Temp Pulse Resp BP Pulse Ox 98.3 F 108 H 23 H 146/72 H 97 12/18/19 04:00 12/18/19 07:00 12/18/19 04:06 12/18/19 04:00 12/18/19 06:08 Intake & Output 12/17/19 12/18/19 12/19/19 06:59 06:59 06:59 Intake Total 1760 Balance 1760 Weight 291 lb 7.218 oz General appearance: PRESENT: no acute distress, well-developed, well-nourished Head exam: PRESENT: atraumatic, normocephalic Eye exam: PRESENT: conjunctiva pink, EOMI, PERRLA. ABSENT: scleral icterus Ear exam: PRESENT: normal external ear exam Mouth exam: PRESENT: moist, tongue midline Neck exam: ABSENT: carotid bruit, JVD, lymphadenopathy, thyromegaly Respiratory exam: PRESENT: rhonchi. ABSENT: rales, wheezes Cardiovascular exam: PRESENT: RRR. ABSENT: diastolic murmur, rubs, systolic murmur Pulses: PRESENT: normal dorsalis pedis pul GI/Abdominal exam: PRESENT: normal bowel sounds, soft. ABSENT: distended, guarding, mass, organolmegaly, rebound, tenderness Rectal exam: PRESENT: deferred Extremities exam: PRESENT: +2 edema Neurological exam: PRESENT: alert, awake, oriented to person, oriented to place, oriented to time, oriented to situation, CN II-XII grossly intact. ABSENT: motor sensory deficit Results Laboratory Results: 12/17/19 15:58 12/18/19 06:42 12/17/19 12/17/19 12/17/19 15:58 15:58 15:58 WBC 7.5 RBC 4.61 Hgb 13.4 L Hct 40.1 MCV 87 MCH 29.1 MCHC 33.4 RDW 15.1 H Plt Count 207 Seg Neutrophils % 58.1 Sodium 141.1 Potassium 4.5 Chloride 102 Carbon Dioxide 29 Anion Gap 10 BUN 22 H Creatinine 1.32 H Est GFR ( Amer) > 60 Glucose 167 H Calcium 9.5 Total Bilirubin 0.9 AST 23 Alkaline Phosphatase 55 Total Protein 6.9 Albumin 3.8 Free T4 1.39 Free T3 pg/mL 2.61 L Urine Color Urine Appearance Urine pH Ur Specific Hurt Urine Protein Urine Glucose (UA) Urine Ketones Urine Blood Urine Nitrite Ur Leukocyte Esterase Urine WBC (Auto) 12/17/19 12/18/19 18:08 06:42 WBC RBC Hgb Hct MCV MCH MCHC RDW Plt Count Seg Neutrophils % Sodium 141.3 Potassium 4.0 Chloride 100 Carbon Dioxide 34 H Anion Gap 7 BUN 34 H Creatinine 1.67 H Est GFR ( Amer) 50 L Glucose 125 H Calcium 10.1 Total Bilirubin AST Alkaline Phosphatase Total Protein Albumin Free T4 Free T3 pg/mL Urine Color YELLOW Urine Appearance CLEAR Urine pH 6.0 Ur Specific Hurt 1.015 Urine Protein NEGATIVE Urine Glucose (UA) 50 H Urine Ketones NEGATIVE Urine Blood NEGATIVE Urine Nitrite NEGATIVE Ur Leukocyte Esterase NEGATIVE Urine WBC (Auto) 0 12/17/19 12/17/19 12/17/19 15:58 15:58 20:28 Creatine Kinase 119 Troponin I 0.019 0.022 NT-Pro-B Natriuret Pep 1460 H Impressions: Chest X-Ray 12/17/19 15:14 IMPRESSION: Borderline cardiomegaly without pulmonary edema. Assessment and Plan - Diagnosis (1) Acute respiratory failure with hypoxia Is this a current diagnosis for this admission?: Yes Plan: Improving. Acute on chronic hypoxic respiratory failure. Likely secondary to CHF exacerbation. (2) Acute CHF (congestive heart failure) Is this a current diagnosis for this admission?: Yes Plan: Likely combination from noncompliance to water restriction and discontinuation diuretics. We will continue patient on IV Lasix. Will recheck another echo to reassess LVEF as his last echo was in 2018. 12/18: Improving. Decrease IV Lasix from 40 every 12 to 20 mg. Plan to switch back to low-dose torsemide later. (3) COPD (chronic obstructive pulmonary disease) Qualifiers: Emphysema type: unspecified Is this a current diagnosis for this admission?: Yes Plan: Not in exacerbation. Breathing treatments as needed. (4) Acute on chronic renal failure Is this a current diagnosis for this admission?: Yes Plan: Creatinine has trended up likely related to IV diuresis. Decrease IV Lasix from 40 every 12 to 20 mg. Plan to switch back to low-dose torsemide later. (5) IDDM (insulin dependent diabetes mellitus) Is this a current diagnosis for this admission?: Yes (6) Hypothyroid Qualifiers: Hypothyroidism type: unspecified Qualified Code(s): E03.9 - Hypothyroidism, unspecified Is this a current diagnosis for this admission?: Yes
[2019-12-18] MEDS: MAGNESIUM OXIDE 400 MG TABLET PO SCH (17:58)
[2019-12-18] MEDS: METOPROLOL TARTRATE 50 MG TABLET PO SCH (21:54)
[2019-12-18] MEDS: VENLAFAXINE HCL 75 MG TABLET PO SCH (21:54)
[2019-12-18] MEDS ORDERED: ATORVASTATIN CALCIUM 80 MG TABLET PO SCH (22:00)
[2019-12-19] MEDS ORDERED: LEVOTHYROXINE SODIUM 0.025 MG TABLET PO SCH (06:00)
[2019-12-19] MEDS ORDERED: PANTOPRAZOLE SODIUM 40 MG TABLET.DR PO SCH (06:00)
[2019-12-19] MEDS ORDERED: LEVOTHYROXINE SODIUM 0.1 MG TABLET PO SCH (06:00)
[2019-12-19] MEDS ORDERED: LEVOTHYROXINE SODIUM 0.125 MG PO SCH (06:00)
[2019-12-19 06:55] LABS: ANION GAP 12 (5-19); BLOOD UREA NITROGEN 35 mg/dL (7-20); CALCIUM 9.7 mg/dL (8.4-10.2); CARBON DIOXIDE 30 mmol/L (22-30); CHLORIDE 100 mmol/L (98-107); GLUCOSE 103 mg/dL (75-110); POTASSIUM 4.4 mmol/L (3.6-5.0)
[2019-12-19] MEDS: INSULIN LISPRO 100 UNIT/ML 3 ML VIAL SUBCUT SCH (09:00)
[2019-12-19] MEDS: METOPROLOL TARTRATE 50 MG TABLET PO SCH (09:38)
[2019-12-19] MEDS: VENLAFAXINE HCL 75 MG TABLET PO SCH (09:40)
[2019-12-19] MEDS: MAGNESIUM OXIDE 400 MG TABLET PO SCH (09:42)
[2019-12-19] MEDS: APIXABAN 2.5 MG TABLET PO SCH (09:43)
[2019-12-19] MEDS ORDERED: ASPIRIN 81 MG TABLET, ENT COATED PO SCH (10:00)
[2019-12-19] MEDS ORDERED: MULTIVITAMIN TABLET PO SCH (10:00)
[2019-12-19] MEDS ORDERED: TORSEMIDE 20 MG TABLET PO SCH (10:00)
[2019-12-19] MEDS ORDERED: FENOFIBRATE NANOCRYSTALLIZED 145 MG TABLET PO SCH (10:00)
[2019-12-19 11:08] VITALS: BP 116/68
--- NOTE | 2019-12-19 14:03 | XCELERA REPORT ---
[address] [address] Transthoracic Echocardiogram Report Name: MCKAYLA COYNE Age: 69 yrs Gender: Male : 1950 Patient Status: Inpatient Patient Location: [address] [place] [address] Study Date: 12/18/2019 07:02 PM History: TIA CHF Height: 70 in Weight: 298 lb BSA: 2.5 m2 Procedure: A complete two-dimensional transthoracic echocardiogram was performed (2D, M-mode, spectral and color flow Doppler). The study was technically difficult with many images being suboptimal in quality. Reason For Study: SOB, reassess LVEF Previous Evaluation: No previous studies were available. History: Shortness of breath. CHF. Ordering Physician: BRIELLE MAY Performed By: Zahira Young Interpretation Summary Left ventricular systolic function is low normal. The Ejection Fraction estimate is 50-55% The right ventricle is normal in size and function. There is a trace amount of mitral regurgitation There is no aortic valve stenosis There is no pericardial effusion. MMode/2D Measurements & Calculations RVDd: 2.6 cm LVIDd: 5.4 cm FS: 32.9 % Ao root diam: 2.4 cm IVSd: 1.2 cm LVIDs: 3.6 cm EDV(Teich): Ao root area: LVPWd: 1.1 cm 138.7 ml 4.6 cm2 ESV(Teich): 54.2 mlLA dimension: 3.6 cm EF(Teich): 60.9 % LVLd ap4: 7.1 cm SV(MOD-sp4): EDV(MOD-sp4): 37.0 ml 67.0 ml LVLs ap4: 6.5 cm ESV(MOD-sp4): 30.0 ml EF(MOD-sp4): 55.2 % Doppler Measurements & Calculations MV P1/2t max kelly: Ao V2 max: LV V1 max PG: PA V2 max: 93.0 cm/sec 129.4 cm/sec 4.3 mmHg 76.0 cm/sec MV P1/2t: 69.0 msec Ao max PG: LV V1 max: PA max PG: MVA(P1/2t): 3.2 cm2 6.7 mmHg 103.2 cm/sec 2.3 mmHg MV dec slope: 394.8 cm/sec2 MV P1/2t-pr_phl: 69.0 msec Left Ventricle The left ventricle is normal in size. There is moderate concentric left ventricular hypertrophy. Left ventricular systolic function is low normal. The Ejection Fraction estimate is 50-55%. Apical wall motion abnormality may reflect pacemaker activation. Right Ventricle The right ventricle is normal in size and function. There is a pacemaker lead in the right ventricle. Atria The right atrium is normal in size. There is a catheter/pacemaker lead seen in the right atrium. The left atrium is borderline dilated. Mitral Valve The mitral valve is grossly normal. There is a trace amount of mitral regurgitation. Aortic Valve The aortic valve is not well visualized secondary to technical limitations. The aortic valve opens well. There is no aortic valve stenosis. No aortic regurgitation is present. Tricuspid Valve The tricuspid valve is not well visualized, but is grossly normal. There is a trace or physiologic amount of tricuspid regurgitation. Tricuspid regurgitation jet envelope not well defined to measure RV systolic pressure accurately. Pulmonic Valve The pulmonic valve is not well visualized. There is a trace or physiologic amount of pulmonic regurgitation. Great Vessels The aortic root is normal size. The inferior vena cava appeared normal and decreased > 50% with respiration (RAP 5-10 mmHg). Effusions There is no pericardial effusion. : BRIELLE MAY Anil
--- NOTE | 2019-12-20 17:15 | PDOC DISCHARGE SUMMARY ---
Impression - Admit/DC Date/PCP Admission Date/Primary Care Provider: 12/17/19 18:23 SAVANNAH BLANKENSHIP MD Discharge Date: 12/19/19 - Discharge Diagnosis (1) Acute respiratory failure with hypoxia Is this a current diagnosis for this admission?: Yes (2) Acute CHF (congestive heart failure) Is this a current diagnosis for this admission?: Yes (3) COPD (chronic obstructive pulmonary disease) Is this a current diagnosis for this admission?: Yes (4) IDDM (insulin dependent diabetes mellitus) Is this a current diagnosis for this admission?: Yes (5) Hypothyroid Is this a current diagnosis for this admission?: Yes - Additional Information Resuscitation Status: Full Code Discharge Diet: Cardiac Discharge Activity: Activity As Tolerated, Balance Activity w/Rest, Weigh Daily Referrals: LOVE OETRO MD [ACTIVE PROVISIONAL STAFF] - 01/01/20 1:00 pm (PROVIDER'S NEXT AVAILABLE APPT.) SAVANNAH BLANKENSHIP MD [Primary Care Provider] - 12/27/19 10:30 am (WITH DANY VANN) Prescriptions: Fluticasone/Salmeterol [Advair 250-50 Diskus 14 Dose/Diskus] 1 inh IH Q12H #1 inhaler Torsemide [Demadex 20 mg Tablet] 10 mg PO Q12 #60 tablet Home Medications: Allopurinol [Zyloprim 100 mg Tablet] 200 mg PO DAILY 12/17/19 Aspirin [Ecotrin 81 mg EC Tablet] 81 mg PO DAILY 12/17/19 Atorvastatin Calcium [Lipitor 80 mg Tablet] 80 mg PO QHS 12/17/19 Fenofibrate Nanocrystallized [Fenofibrate] 145 mg PO DAILY 12/17/19 Insulin Regular, Human [Humulin R (Hi-Dose) Insulin 500 unit/mL] 0 unit SQ .PER SLD SCALE 12/17/19 Levothyroxine Sodium [Synthroid] 0.125 mg PO Q6AM 12/17/19 Lisinopril [Prinivil 5 mg Tablet] 5 mg PO DAILY 12/17/19 Magnesium Oxide [Mag-Ox 400 mg Tablet] 400 mg PO BID 12/17/19 Metoprolol Tartrate [Lopressor 50 mg Tablet] 50 mg PO Q12 12/17/19 Multivitamin [One-A-Day Essential] 1 tab PO DAILY 12/17/19 Pantoprazole Sodium [Protonix] 40 mg PO Q6AM 12/17/19 Venlafaxine HCl [Effexor 75 mg Tablet] 75 mg PO Q12 12/17/19 Apixaban [Eliquis 5 mg Tablet] 5 mg PO Q12 #0 12/19/19 Fluticasone/Salmeterol [Advair 250-50 Diskus 14 Dose/Diskus] 1 inh IH Q12H #1 inhaler 12/19/19 Torsemide [Demadex 20 mg Tablet] 10 mg PO Q12 #60 tablet 12/19/19 History of Present Illiness History of Present Illness: MCKAYLA COYNE is a 69 year old male with a past medical history of CHF, prior pacemaker placement and prior ablation, CKD, atrial fibrillation on Eliquis, hypothyroidism, COPD, chronic hypoxemic respiratory failure on 2 L of home O2, hypertension and insulin-dependent diabetes mellitus who presented with increasing shortness of breath. Patient says that he noticed that his bipedal edema has been progressively getting worse since last Monday. He says it is associated with increasing shortness of breath as well. He reports that he got a call from his chargeback specialist's nurse last Monday and was told to hold off on taking his home torsemide due to some blood test results. He is not able to tell me if it was a creatinine issue or an electrolyte issue. He says that his pedal edema and shortness of breath continued to worsen and he was taken off torsemide. He denies chest pain. Patient does report that he has been having increasing thirst which she thinks is from his diabetes hence he has been drinking at least 3.5L or more of water every day. Hospital Course Hospital Course: Patient was started on IV diuresis with IV Lasix. He had significant relief and improvement of his shortness of breath and pedal swelling with diuresis. His creatinine slowly trended up with IV Lasix. Lasix was decreased and his creatinine did recover and trended down to his baseline. Patient was restarted on his home torsemide but at a lower dose. Discussed with Dr. Otero who will follow up with patient. He will be discharged on a lower dose of torsemide with close monitoring of his BMP and appropriate titration of his diuretics with his chargeback specialist. He was also counseled about salt and fluid restriction as he takes in more than 3.5 L of fluids a day. Physical Exam Vital Signs: Temp Pulse Resp BP Pulse Ox 98.5 F 77 18 116/68 95 12/19/19 11:03 12/19/19 11:03 12/19/19 11:03 12/19/19 11:03 12/19/19 11:03 Intake & Output 12/19/19 12/20/19 12/21/19 06:59 06:59 06:59 Intake Total 1640 Balance 1640 Weight 284 lb 2.813 oz General appearance: PRESENT: no acute distress, well-developed, well-nourished Head exam: PRESENT: atraumatic, normocephalic Eye exam: PRESENT: conjunctiva pink, EOMI, PERRLA. ABSENT: scleral icterus Ear exam: PRESENT: normal external ear exam Mouth exam: PRESENT: moist, tongue midline Neck exam: ABSENT: carotid bruit, JVD, lymphadenopathy, thyromegaly Respiratory exam: PRESENT: clear to auscultation dayanna. ABSENT: rales, rhonchi, wheezes Cardiovascular exam: PRESENT: RRR. ABSENT: diastolic murmur, rubs, systolic murmur Pulses: PRESENT: normal dorsalis pedis pul GI/Abdominal exam: PRESENT: normal bowel sounds, soft. ABSENT: distended, guarding, mass, organolmegaly, rebound, tenderness Rectal exam: PRESENT: deferred Extremities exam: PRESENT: +2 edema Neurological exam: PRESENT: alert, awake, oriented to person, oriented to place, oriented to time, oriented to situation, CN II-XII grossly intact. ABSENT: motor sensory deficit Results Laboratory Results: WBC 7.5 10^3/uL (4.0-10.5) 12/17/19 15:58 RBC 4.61 10^6/uL (4.35-5.55) 12/17/19 15:58 Hgb 13.4 g/dL (13.5-17.0) L 12/17/19 15:58 Hct 40.1 % (37.9-51.0) 12/17/19 15:58 MCV 87 fl (80-97) 12/17/19 15:58 MCH 29.1 pg (27.0-33.4) 12/17/19 15:58 MCHC 33.4 g/dL (32.0-36.0) 12/17/19 15:58 RDW 15.1 % (11.5-14.0) H 12/17/19 15:58 Plt Count 207 10^3/uL (150-450) 12/17/19 15:58 Lymph % (Auto) 27.9 % (13-45) 12/17/19 15:58 [place] % (Auto) 11.3 % (3-13) 12/17/19 15:58 Eos % (Auto) 2.4 % (0-6) 12/17/19 15:58 Baso % (Auto) 0.3 % (0-2) 12/17/19 15:58 Absolute Neuts (auto) 4.3 10^3/uL (1.7-8.2) 12/17/19 15:58 Absolute Lymphs (auto) 2.1 10^3/uL (0.5-4.7) 12/17/19 15:58 Absolute Monos (auto) 0.8 10^3/uL (0.1-1.4) 12/17/19 15:58 Absolute Eos (auto) 0.2 10^3/uL (0.0-0.6) 12/17/19 15:58 Absolute Basos (auto) 0.0 10^3/uL (0.0-0.2) 12/17/19 15:58 Seg Neutrophils % 58.1 % (42-78) 12/17/19 15:58 Sodium 141.5 mmol/L (137-145) 12/19/19 06:09 Potassium 4.4 mmol/L (3.6-5.0) 12/19/19 06:09 Chloride 100 mmol/L (98-107) 12/19/19 06:09 Carbon Dioxide 30 mmol/L (22-30) 12/19/19 06:09 Anion Gap 12 (5-19) 12/19/19 06:09 BUN 35 mg/dL (7-20) H 12/19/19 06:09 Creatinine 1.49 mg/dL (0.52-1.25) H 12/19/19 06:09 Est GFR ( Amer) 57 (>60) L 12/19/19 06:09 Est GFR (MDRD) Non-Af 47 (>60) L 12/19/19 06:09 Glucose 103 mg/dL (75-110) 12/19/19 06:09 POC Glucose 120 mg/dL (70-110) H 12/19/19 07:31 Hemoglobin A1c % 7.7 % (4.7-6.0) H 12/17/19 15:58 Calcium 9.7 mg/dL (8.4-10.2) 12/19/19 06:09 Total Bilirubin 0.9 mg/dL (0.2-1.3) 12/17/19 15:58 Direct Bilirubin 0.2 mg/dL (0.0-0.4) 12/17/19 15:58 Neonat Total Bilirubin Not Reportable 12/17/19 15:58 Neonat Direct Bilirubin Not Reportable 12/17/19 15:58 Neonat Indirect Bili Not Reportable 12/17/19 15:58 AST 23 U/L (17-59) 12/17/19 15:58 ALT 22 U/L (<50) 12/17/19 15:58 Alkaline Phosphatase 55 U/L (38-126) 12/17/19 15:58 Creatine Kinase 119 U/L (55-170) 12/17/19 15:58 Troponin I 0.022 ng/mL 12/17/19 20:28 NT-Pro-B Natriuret Pep 1460 pg/mL (<125) H 12/17/19 15:58 Total Protein 6.9 g/dL (6.3-8.2) 12/17/19 15:58 Albumin 3.8 g/dL (3.5-5.0) 12/17/19 15:58 Free T4 1.39 ng/dL (0.78-2.19) 12/17/19 15:58 Free T3 pg/mL 2.61 pg/mL (2.77-5.27) L 12/17/19 15:58 Urine Color YELLOW 12/17/19 18:08 Urine Appearance CLEAR 12/17/19 18:08 Urine pH 6.0 (5.0-9.0) 12/17/19 18:08 Ur Specific [place] 1.015 12/17/19 18:08 Urine Protein NEGATIVE mg/dL (NEGATIVE) 12/17/19 18:08 Urine Glucose (UA) 50 mg/dL (NEGATIVE) H 12/17/19 18:08 Urine Ketones NEGATIVE mg/dL (NEGATIVE) 12/17/19 18:08 Urine Blood NEGATIVE (NEGATIVE) 12/17/19 18:08 Urine Nitrite NEGATIVE (NEGATIVE) 12/17/19 18:08 Urine Bilirubin NEGATIVE (NEGATIVE) 12/17/19 18:08 Urine Urobilinogen NEGATIVE mg/dL (<2.0) 12/17/19 18:08 Ur Leukocyte Esterase NEGATIVE (NEGATIVE) 12/17/19 18:08 Urine WBC (Auto) 0 /HPF 12/17/19 18:08 Squamous Epi Cells Auto <1 /HPF 12/17/19 18:08 Urine Ascorbic Acid NEGATIVE (NEGATIVE) 12/17/19 18:08 12/17/19 12/17/19 15:58 20:28 Troponin I 0.019 0.022 NT-Pro-B Natriuret Pep 1460 H Impressions: Chest X-Ray 12/17/19 15:14 IMPRESSION: Borderline cardiomegaly without pulmonary edema. Stroke Is this a Stroke Patient?: No Acute Heart Failure - Is this a Heart Failure Patient?: Yes Documentation of LVEF assessment?: Yes LVEF < 40%?: No- if no continue to question #3 3. Anticoagulant therapy for permanect/persistent/paraoxysmal Afib or Aflutter: N/A
== END 2019-12-19 11:50 | disposition home or self-care (01) ==
LOC: ER 14:29 → INTOOBSV 18:23 → EH 18:23 → 5 19:25
PROVIDERS: ADMIT Internal Medicine; ATTEND Internal Medicine
DX: J96.21 Acute and chronic respiratory failure with hypoxia (principal); J44.9 Chronic obstructive pulmonary disease, unspecified; I13.0 Hypertensive heart and chronic kidney disease with heart failure and stage 1 through stage 4 chronic kidney disease, or unspecified chronic kidney disease; E11.22 Type 2 diabetes mellitus with diabetic chronic kidney disease; N17.9 Acute kidney failure, unspecified; N18.9 Chronic kidney disease, unspecified; I50.9 Heart failure, unspecified; E03.9 Hypothyroidism, unspecified; I48.91 Unspecified atrial fibrillation; I25.10 Atherosclerotic heart disease of native coronary artery without angina pectoris; E78.5 Hyperlipidemia, unspecified; M19.90 Unspecified osteoarthritis, unspecified site; I25.2 Old myocardial infarction; Z79.4 Long term (current) use of insulin; Z79.899 Other long term (current) drug therapy; Z79.82 Long term (current) use of aspirin; Z82.49 Family history of ischemic heart disease and other diseases of the circulatory system; Z79.02 Long term (current) use of antithrombotics/antiplatelets; Z99.81 Dependence on supplemental oxygen; Z95.810 Presence of automatic (implantable) cardiac defibrillator; Z98.890 Other specified postprocedural states
CPT/HCPCS: 93005; 99285; 96374; 36415 ×3; 84439; 82962 ×3; 82550; 85025; 80048 ×2; 80053; 81001; 84484; 84481; 83036; 83880; 93306; 71046; 93010; 94660 ×2; A9270 ×19; J1940 ×2; J3490 ×3; G0378; J1815

== ENCOUNTER 2019-12-31 16:36 | Emergency (ER) | payer MEDICARE, OTHER ==
--- NOTE | 2019-12-31 17:24 | ER Document Report ---
ED Medical Screen (RME) - General Chief Complaint: Fall Stated Complaint: FALL/LEFT RIB PAIN Time Seen by Provider: 12/31/19 17:16 Primary Care Provider: SAVANNAH BLANKENSHIP MD [Primary Care Provider] - Follow up as needed Notes: HPI: 69-year-old male with CHF COPD history presenting for left chest wall injury that occurred 5 days ago. He rolled out of bed landing on his elbow. Patient states it hurts to take a deep breath then and now he feels much more short of breath. States he feels like he is retaining fluid again his ankles have been swelling. No fever. No abdominal or flank pain. I have greeted and performed a rapid initial assessment of this patient. A comprehensive ED assessment and evaluation of the patient, analysis of test results and completion of the medical decision making process will be conducted by additional ED providers PHYSICAL EXAMINATION: GENERAL: Well-appearing, well-nourished and in moderate acute distress. HEAD: Atraumatic, normocephalic. EYES: sclera anicteric, conjunctiva are normal. ENT: Moist mucous membranes. NECK: Normal range of motion LUNGS: Normal work of breathing, diminished left lower lobe, no flail or crepitus, no visible bruising to the chest wall, mild tenderness over the anterior lateral ribs on palpation. Pulse oximetry 88% on room air mildly hypoxic HEART: 2+ radial pulses bilaterally, mild tachycardia ABD: limited by positioning for exam in triage. EXTREMITIES: Bilateral pitting edema ankles. No cyanosis. NEUROLOGICAL: No focal neurological deficits. Moves all extremities spontaneously and on command. PSYCH: Normal mood, normal affect. SKIN: Warm, Dry, normal turgor, no rashes or lesions noted. Spoke with Dr. Souza, Attending TRAVEL OUTSIDE OF THE [place] IN LAST 30 DAYS: No - Related Data Allergies/Adverse Reactions: No Known Allergies Allergy (Verified 10/23/19 14:45) Past Medical History - Past Medical History Cardiac Medical History: Reports: Hx Atrial Fibrillation, Hx Congestive Heart Failure, Hx Coronary Artery Disease, Hx Heart Attack - november 2016 , Hx Hypercholesterolemia, Hx Hypertension - MEDICATED Pulmonary Medical History: Reports: Hx COPD, Hx Sleep Apnea Denies: Hx Asthma Neurological Medical History: Denies: Hx Cerebrovascular Accident, Hx Seizures Endocrine Medical History: Reports: Hx Diabetes Mellitus Type 2 Renal/ Medical History: Denies: Hx Peritoneal Dialysis GI Medical History: Denies: Hx Hepatitis, Hx Hiatal Hernia, Hx Ulcer Musculoskeltal Medical History: Reports Hx Arthritis Psychiatric Medical History: Reports: Hx Depression Infectious Medical History: Denies: Hx Hepatitis Past Surgical History: Reports: Hx Cardiac Surgery - Ablation, Hx Internal Defibrillator, Hx Pacemaker - November heart stopped CPR started , Hx Tonsillectomy. Denies: Hx Open Heart Surgery Physical Exam - Vital signs Vitals: Temp Pulse Resp BP Pulse Ox 98.4 F 99 24 H 146/73 H 88 L 12/31/19 17:10 12/31/19 17:10 12/31/19 17:10 12/31/19 17:10 12/31/19 17:10 Course - Vital Signs Vital signs: Temp Pulse Resp BP Pulse Ox 98.4 F 99 24 H 146/73 H 88 L 12/31/19 17:10 12/31/19 17:10 12/31/19 17:10 12/31/19 17:10 12/31/19 17:10 Doctor's Discharge - Discharge Referrals: SAVANNAH BLANKENSHIP MD [Primary Care Provider] - Follow up as needed
--- NOTE | 2019-12-31 18:00 | RADIOLOGY REPORT (SQ) ---
EXAM DESCRIPTION: CHEST SINGLE VIEW COMPLETED DATE/TIME: 12/31/2019 5:28 pm REASON FOR STUDY: left chest wall pain/fall COMPARISON: 12/17/2019 TECHNIQUE: Single frontal radiographic view of the chest acquired. NUMBER OF VIEWS: One view. LIMITATIONS: None. FINDINGS: LUNGS AND PLEURA: No pneumothorax. Increased airspace opacities -subsegmental atelectasis in the left lung base. Possible small left Pleural effusion. MEDIASTINUM AND HILAR STRUCTURES: Stable. HEART AND VASCULAR STRUCTURES: Stable. BONES: No acute findings. HARDWARE: Cardiac defibrillator. OTHER: No other significant finding. IMPRESSION: Increased airspace opacities -subsegmental atelectasis in the left lung base. Possible small left Pleural effusion. TECHNICAL DOCUMENTATION: JOB ID: [id number] [id number] 2010 [employer]- All Rights Reserved Reading location - IP/workstation name: [employer]
[2019-12-31 18:56] LABS: ABSOLUTE EOSINOPHILS # (AUTO) 0.2 10^3/uL (0.0-0.6); ABSOLUTE LYMPHOCYTES (AUTO) 2.9 10^3/uL (0.5-4.7); ABSOLUTE NEUT (AUTO) 5.5 10^3/uL (1.7-8.2); BASOPHILS % (AUTO) 0.5 % (0-2); HEMATOCRIT 42.6 % (37.9-51.0); HEMOGLOBIN 14.5 g/dL (13.5-17.0); LYMPHOCYTES % (AUTO) 29.9 % (13-45); MEAN CORPUSCULAR HEMOGLOBIN 29.1 pg (27.0-33.4); MEAN CORPUSCULAR HGB CONC 34.1 g/dL (32.0-36.0); MEAN CORPUSCULAR VOLUME 86 fl (80-97); MONOCYTES % (AUTO) 10.7 % (3-13); PLATELET COUNT 323 10^3/uL (150-450); RED BLOOD COUNT 4.98 10^6/uL (4.35-5.55); RED CELL DISTRIBUTION WIDTH 15.3 % (11.5-14.0); SEGMENTED NEUTROPHILS % (AUTO) 56.9 % (42-78); TOTAL CELLS COUNTED % (AUTO) 100 %; WHITE BLOOD COUNT 9.7 10^3/uL (4.0-10.5)
[2019-12-31 19:03] LABS: APPEARANCE,URINE CLEAR; BILIRUBIN,URINE NEGATIVE (NEGATIVE); COLOR,URINE YELLOW; GLUCOSE, URINE NEGATIVE (NEGATIVE); KETONES,URINE NEGATIVE (NEGATIVE); LEUKOCYTE ESTERASE,URINE NEGATIVE (NEGATIVE); NITRITE,URINE NEGATIVE (NEGATIVE); PROTEIN,URINE NEGATIVE (NEGATIVE); URINE SPECIFIC GRAVITY 1.012; UROBILINOGEN,URINE NEGATIVE mg/dL (<2.0)
[2019-12-31 19:16] LABS: ALBUMIN 4.1 g/dL (3.5-5.0); ALKALINE PHOSPHATASE 59 U/L (38-126); ANION GAP 9 (5-19); ASPARTATE AMINO TRANSFERASE 26 U/L (17-59); BILIRUBIN,TOTAL 0.4 mg/dL (0.2-1.3); BLOOD UREA NITROGEN 34 mg/dL (7-20); CALCIUM 10.1 mg/dL (8.4-10.2); CARBON DIOXIDE 29 mmol/L (22-30); CHLORIDE 103 mmol/L (98-107); GLUCOSE 90 mg/dL (75-110); POTASSIUM 4.6 mmol/L (3.6-5.0); TOTAL PROTEIN 6.9 g/dL (6.3-8.2)
[2019-12-31 19:26] LABS: TROPONIN I 0.023 ng/mL
[2019-12-31] MEDS ORDERED: FUROSEMIDE INJ/PF 20 MG/2 ML SDV IV ONE (20:37)
--- NOTE | 2019-12-31 20:44 | ER Document Report ---
ED General - General Chief Complaint: Fall Stated Complaint: FALL/LEFT RIB PAIN Time Seen by Provider: 12/31/19 17:16 Primary Care Provider: SAVANNAH BLANKENSHIP MD [Primary Care Provider] - Follow up as needed TRAVEL OUTSIDE OF THE [place] IN LAST 30 DAYS: No - HPI Notes: 67-year-old male with pacemaker, CHF and oxygen dependent COPD was discharged from the hospital here about 10 days ago after treatment for decompensated heart failure and now returns complaining of left rib pain and some increasing shortness of breath after falling at home 5 days ago and injuring his left ribs. We note also that this man takes Eliquis chronically. - Related Data Allergies/Adverse Reactions: No Known Allergies Allergy (Verified 10/23/19 14:45) Past Medical History - General Information source: Patient, [facility] Records - Social History Smoking Status: Former Smoker Family History: COPD, Hypertension Patient has suicidal ideation: No Patient has homicidal ideation: No - Past Medical History Cardiac Medical History: Reports: Hx Atrial Fibrillation, Hx Congestive Heart Failure, Hx Coronary Artery Disease, Hx Heart Attack - november 2016 , Hx Hypercholesterolemia, Hx Hypertension - MEDICATED Pulmonary Medical History: Reports: Hx COPD, Hx Sleep Apnea Denies: Hx Asthma Neurological Medical History: Denies: Hx Cerebrovascular Accident, Hx Seizures Endocrine Medical History: Reports: Hx Diabetes Mellitus Type 2 Renal/ Medical History: Denies: Hx Peritoneal Dialysis GI Medical History: Denies: Hx Hepatitis, Hx Hiatal Hernia, Hx Ulcer Musculoskeletal Medical History: Reports Hx Arthritis Psychiatric Medical History: Reports: Hx Depression Infectious Medical History: Denies: Hx Hepatitis Past Surgical History: Reports: Hx Cardiac Surgery - Ablation, Hx Internal Defibrillator, Hx Pacemaker - November heart stopped CPR started , Hx Tonsillectomy. Denies: Hx Open Heart Surgery Review of Systems - Review of Systems Notes: Constitutional: Negative for fever. HENT: Negative for sore throat. Eyes: Negative for visual changes. Cardiovascular: As per HPI. Increasing edema of both lower extremities. Currently taking 20 mg of Lasix daily. Respiratory: As per HPI. Gastrointestinal: Negative for abdominal pain, vomiting or diarrhea. Genitourinary: Negative for dysuria. Musculoskeletal: Negative for back pain. Skin: Negative for rash. Neurological: Negative for headaches, weakness or numbness. 10 point ROS negative except as marked above and in HPI. Physical Exam - Vital signs Vitals: Temp Pulse Resp BP Pulse Ox 98.4 F 99 24 H 146/73 H 88 L 12/31/19 17:10 12/31/19 17:10 12/31/19 17:10 12/31/19 17:10 12/31/19 17:10 - Notes Notes: GENERAL: Moderately obese male patient appearing approximately stated age using 2 L/min nasal O2 with O2 saturation of 98%. SKIN: Good turgor no rashes. HEAD: Normocephalic atraumatic. EYES: PERRLA. EOMI. Conjunctivae and sclerae clear. EARS: CANALS AND TMS CLEAR. NOSE: CLEAR. MOUTH: Moist mucosa. Good dentition. No stridor or edema. No drooling. NECK: Supple. No masses or thyromegaly. No adenopathy. Carotids 2+ without bruits. No JVD. BACK: Symmetrical without tenderness. CHEST: Mild tenderness left anterior chest wall along lower rib cage near anterior axillary line. Patient has no crepitus or step-off and no visible e cchymoses. Respirations unlabored. Few coarse crackles at both bases left greater than right. HEART: Regular rhythm. No murmur gallop or rub. ABDOMEN: Obese. Soft nontender without masses, organomegaly or rebound. Bowel sounds normally active. No bruits. GENITALIA: Deferred. EXTREMITIES: 2+ pretibial edema bilaterally. No calf tenderness. Cap refill less than 1.5 seconds. Dorsalis pedis and posterior tibial pulses 3+ and symmetrical. NEUROLOGICAL: GCS 15. Alert and oriented x3. Fluent speech. Cranial nerves II through XII intact. Sensorimotor and cerebellar normal. Normal tone. PSYCHIATRIC: Appropriate affect. Course - Re-evaluation Re-evalutation: 12/31/19 22:43 Patient appears to have some decompensated heart failure. He also has fractures of the fourth through sixth ribs on the left which are nondisplaced. These injuries occurred 5 days ago. I have given him some IV Lasix here. He had a brisk diuresis and appears to be at his usual baseline at this point. I will send him out with some pain medicine and will increase his Lasix to 40 mg daily. He is to follow-up with his primary care physician this week. - Vital Signs Vital signs: Temp Pulse Resp BP Pulse Ox 98.4 F 99 25 H 146/73 H 96 12/31/19 17:10 12/31/19 17:10 12/31/19 20:00 12/31/19 17:10 12/31/19 20:00 - Laboratory Result Diagrams: 12/31/19 18:35 12/31/19 18:35 Laboratory results interpreted by me: 12/31/19 12/31/19 12/31/19 18:35 18:35 18:35 RDW 15.3 H BUN 34 H Creatinine 1.46 H Est GFR ( Amer) 58 L Est GFR (MDRD) Non-Af 48 L NT-Pro-B Natriuret Pep 315 H - Diagnostic Test Radiology reviewed: Reports reviewed - CT of the chest shows posterior fracture of the left fourth through sixth ribs nondisplaced Discharge - Discharge Clinical Impression: Multiple fractures of ribs, left side, initial encounter for closed fracture, Acute decompensated heart failure Condition: Stable Disposition: HOME, SELF-CARE Additional Instructions: Rib Injuries and Fractures You have been diagnosed as having either bruised or broken ribs. These two injuries are treated in the same way. It will usually take four to six weeks for these injured ribs to heal. Sometimes, rib belts or anesthetic injections of the chest wall help reduce the pain. If you are using a rib belt, you should cough or take a deep breath at least every hour or two to prevent lung complications. You should not engage in any strenuous physical activity until released by your physician. The usual rule is "if it hurts, don't do it." Rib fractures can lead to serious lung complications including lung collapse, hemorrhage, and pneumonia. You should call the physician or return at once if any of the following occur: (1) Fever or chills. (2) Persistent cough, coughing up blood, or shortness of breath. (3) Increasing pain. (4) Weakness, lightheadedness, or fainting. Increase her Lasix to 40 mg daily. Take prescribed pain medication as directed. Follow-up with your primary care physician this week. Prescriptions: Tramadol HCl [Ultram 50 mg Tablet] 50 mg PO Q4HP PRN #12 tab PRN Reason: Tramadol HCl [Ultram 50 mg Tablet] 50 mg PO Q4HP PRN #12 tab PRN Reason: Referrals: SAVANNAH BLANKENSHIP MD [Primary Care Provider] - Follow up as needed
--- NOTE | 2019-12-31 21:31 | RADIOLOGY REPORT (SQ) ---
EXAM DESCRIPTION: CT CHEST WITH IV CONTRAST COMPLETED DATE/TME: 12/31/2019 20:38 CLINICAL HISTORY: 69 years, Male, trauma COMPARISON: March 31, 2017 TECHNIQUE: Images stored on PACS. All CT scanners at this facility use dose modulation, iterative reconstruction, and/or weight based dosing when appropriate to reduce radiation dose to as low as reasonably achievable (ALARA). [facility]: Dose Right [facility]: CareDose [facility]: Dose Right [facility]: Teradose 4D [facility]: Expedit.us LIMITATIONS: None. FINDINGS: The heart is enlarged with postsurgical change. Coronary calcification. Vascular calcification. No bulky mediastinal adenopathy. The lungs are grossly clear. Dependent atelectasis. No effusion. No pneumothorax. Detail obscured by motion. Mild hepatic steatosis.. Age-appropriate osteoarthritis.. Fracture of the left posterior fourth rib, left anterior fifth and 6 rib, interval change from prior. Presumed acute IMPRESSION: Artifact from the patient's arm. Imaging is degraded by patient motion, with resultant artifact. The best possible images were obtained. Fracture of the left fourth through sixth ribs. Interval change from prior. Lungs grossly clear. TECHNICAL DOCUMENTATION: Quality ID # [id number]: Final reports with documentation of one or more dose reduction techniques (e.g., Automated exposure control, adjustment of the mA and/or kV according to patient size, use of iterative reconstruction technique) copyright 2011 [employer]- All Rights Reserved
[2019-12-31 23:55] VITALS: BP 110/70
--- NOTE | 2020-01-01 17:22 | EKG REPORT ---
SEVERITY:- ABNORMAL ECG - A-V DUAL-PACED COMPLEXES W/ SOME INHIBITION : Confirmed by: Valerie Mahoney MD 01-Jan-2020 17:22:19
== END 2020-01-01 00:07 | disposition home or self-care (01) ==
LOC: ER 16:36
DX: S22.42XA Multiple fractures of ribs, left side, initial encounter for closed fracture (principal); W19.XXXA Unspecified fall, initial encounter; Y92.009 Unspecified place in unspecified non-institutional (private) residence as the place of occurrence of the external cause; I11.0 Hypertensive heart disease with heart failure; I50.9 Heart failure, unspecified; I48.91 Unspecified atrial fibrillation; E66.9 Obesity, unspecified; E78.00 Pure hypercholesterolemia, unspecified; E11.9 Type 2 diabetes mellitus without complications; Z95.810 Presence of automatic (implantable) cardiac defibrillator; I25.2 Old myocardial infarction
CPT/HCPCS: 93005; 99284; 96374; 36415; 85025; 80053; 81001; 84484; 83880; 71045; 71260; 93010; J1940

== ENCOUNTER → 2020-11-20 | Outpatient (CLI) | payer MEDICARE, OTHER ==
[2020-11-20 15:56] LABS: ABSOLUTE BASOPHILS # (AUTO) 0.1 10^3/uL (0.0-0.2); ABSOLUTE EOSINOPHILS # (AUTO) 0.2 10^3/uL (0.0-0.6); ABSOLUTE LYMPHOCYTES (AUTO) 4.3 10^3/uL (0.5-4.7); ABSOLUTE MONOCYTES (AUTO) 1.1 10^3/uL (0.1-1.4); ABSOLUTE NEUT (AUTO) 6.8 10^3/uL (1.7-8.2); BASOPHILS % (AUTO) 0.6 % (0-2); EOSINOPHILS % (AUTO) 1.2 % (0-6); HEMATOCRIT 48.8 % (37.9-51.0); HEMOGLOBIN 16.5 g/dL (13.5-17.0); LYMPHOCYTES % (AUTO) 34.6 % (13-45); MEAN CORPUSCULAR HEMOGLOBIN 28.4 pg (27.0-33.4); MEAN CORPUSCULAR HGB CONC 33.9 g/dL (32.0-36.0); MEAN CORPUSCULAR VOLUME 84 fl (80-97); MONOCYTES % (AUTO) 8.9 % (3-13); PLATELET COUNT 251 10^3/uL (150-450); RED BLOOD COUNT 5.83 10^6/uL (4.35-5.55); RED CELL DISTRIBUTION WIDTH 15.9 % (11.5-14.0); SEGMENTED NEUTROPHILS % (AUTO) 54.7 % (42-78); TOTAL CELLS COUNTED % (AUTO) 100 %; WHITE BLOOD COUNT 12.5 10^3/uL (4.0-10.5)
[2020-11-20 16:01] LABS: APPEARANCE,URINE CLEAR; BILIRUBIN,URINE NEGATIVE (NEGATIVE); COLOR,URINE YELLOW; GLUCOSE, URINE NEGATIVE (NEGATIVE); KETONES,URINE NEGATIVE (NEGATIVE); LEUKOCYTE ESTERASE,URINE NEGATIVE (NEGATIVE); NITRITE,URINE NEGATIVE (NEGATIVE); PROTEIN,URINE NEGATIVE (NEGATIVE); UROBILINOGEN,URINE NEGATIVE mg/dL (<2.0)
[2020-11-20 16:17] LABS: ALBUMIN 4.8 g/dL (3.5-5.0); ANION GAP 13 (5-19); BLOOD UREA NITROGEN 64 mg/dL (7-20); CALCIUM 10.5 mg/dL (8.4-10.2); CARBON DIOXIDE 37 mmol/L (22-30); CHLORIDE 87 mmol/L (98-107); GLUCOSE 284 mg/dL (75-110); PHOSPHORUS 5.3 mg/dL (2.5-4.5); POTASSIUM 3.4 mmol/L (3.6-5.0)
[2020-11-22 06:38] LABS: CREATININE URINE 48.5 mg/dL (Not Estab.); MICROALBUMIN URINE 11.3 ug/mL (Not Estab.)
== END ==
LOC: OD 15:15
PROVIDERS: ATTEND Internal Medicine Nephrology
DX: I12.9 Hypertensive chronic kidney disease with stage 1 through stage 4 chronic kidney disease, or unspecified chronic kidney disease (principal); N18.30 Chronic kidney disease, stage 3 unspecified; E11.22 Type 2 diabetes mellitus with diabetic chronic kidney disease; R80.9 Proteinuria, unspecified; E55.9 Vitamin D deficiency, unspecified
CPT/HCPCS: 36415; 80069; 81001; 82043; 82306; 82570; 83970; 85025